=== PATIENT | male | born 1950 | race Caucasian/White ===

== ENCOUNTER 2021-06-21 17:28 | Inpatient (IN) ==
[2021-06-21 19:23] LABS: Basophils # (auto) 0.02 K/uL (0-0.2); Basophils % (auto) 0.2 %; Eosinophils # (auto) 0.12 K/uL (0-0.5); Eosinophils % (auto) 1.1 %; Hematocrit (blood only) 31.4 % (42-52); Immature Granulocytes # (auto) 0.01 K/uL (0.00-0.02); Immature Granulocytes % (auto) 0.1 %; Lymphocytes # (auto) 2.13 K/uL (1.2-3.4); Mean Corpuscular Hemoglobin 27.9 pg (25-34); Mean Corpuscular Hgb Conc 31.8 g/dL (32-36); Mean Corpuscular Volume 87.7 fL (80-100); Mean Platelet Volume 8.8 fL (7.4-10.4); Monocytes # (auto) 0.46 K/uL (0.11-0.59); Monocytes % (auto) 4.3 %; Neutrophils # (auto) 7.92 K/uL (1.4-6.5); Neutrophils % (auto) 74.3 %; Platelet Count 429 K/uL (130-400); RDW Coefficient of Variation 13.7 % (11.5-14.5); Red Blood Count 3.58 M/uL (4.7-6.1); White Blood Count 10.66 K/uL (4.8-10.8)
[2021-06-21 19:28] LABS: Appearance Urine Cloudy (Clear); Bacteria Urine Automated Negative (Negative); Bilirubin Urine Negative (Negative); Blood Urine Negative (Negative); Color Urine Dark Yellow; Epithelial Cell Urine Auto >30 /lpf (0-5); Glucose Urine UA Negative (Negative); Ketones Urine Trace (Negative); Leukocyte Esterase Urine 1+ (Negative); Nitrite Urine Negative (Negative); Protein Urine 2+ (Negative); Specific Gravity Urine 1.025 (1.000-1.030); Urobilinogen Urine Negative (Negative)
[2021-06-21 19:38] LABS: INR 1.1 (0.9-1.1); Partial Thromboplastin Ratio 0.9; Partial Thromboplastin Time 23.8 Seconds (21.0-31.0); Prothrombin Time 11.4 Seconds (9.0-12.0)
[2021-06-21 19:41] LABS: Alanine Aminotransferase 16 U/L (12-78); Albumin Level 3.1 gm/dl (3.4-5.0); Aspartate Aminotransferase 10 U/L (15-37); BUN Creatinine Ratio 13.4 (10-20); Blood Urea Nitrogen 13 mg/dl (7-18); Calcium 9.2 mg/dl (8.5-10.1); Carbon Dioxide 30 mmol/L (21-32); Chloride 102 mmol/L (98-107); Est GFR (Non-African American) 80.2 ml/min; Glucose 129 mg/dl (70-99); Magnesium 2.1 mg/dl (1.8-2.4); Potassium 3.2 mmol/L (3.5-5.1); Sodium 139 mmol/L (136-145)
[2021-06-21 19:46] LABS: Albumin Globulin Ratio 0.6 (0.9-2); Alkaline Phosphatase 50 U/L (45-117); Bilirubin,Total 0.4 mg/dl (0.2-1); Total Protein 8.1 gm/dl (6.4-8.2); Troponin I < 0.015 ng/ml (0-0.045)
[2021-06-21 20:09] LABS: Calcium Oxalate Crystals Urine Present (None Prsent); Cast Urine Automated 0 /lpf (0-5); RBC Urine Automated 0-4 /hpf (0-4); Renal Epithelial Cells Urine 0-5 /lpf (0-5)
[2021-06-21 20:21] LABS: C Reactive Protein 9.61 mg/dl (0-0.29)
--- NOTE | 2021-06-21 20:42 | XRay Report ---
XR foot RT 2V HISTORY: 70 years-old Male Concern for osteo 1st toe, spreads to mid foot chronic right foot pain. C linical concern for prostatitis COMPARISON: [Radiographs of same day TECHNIQUE: 2 views of the right foot FINDINGS: Moderate sized enthesophytes of the calcaneus. Mild multifocal osteoarthritis. Bipartite lateral agrawal ux sesamoid. No acute fracture, dislocation, opaque foreign body or osseous erosion. Mild diffuse sof t tissue prominence. IMPRESSION: Soft tissue swelling without acute fracture or osseous erosion. ACT 112: Negative or not required by law. The above report was generated using voice recognition software. It may contain grammatical, syntax o r spelling errors. Electronically signed by: Jay Marks M.D. 06/21/2021 8:40 PM
--- NOTE | 2021-06-21 20:44 | XRay Report ---
XR foot LT 2V, XR ankle LT 2V HISTORY: 70 years-old Male concern for osteo 2nd-3rd toes spreads to mid foot chronic pain of the le ft foot and ankle. Clinical concern prostate myelitis COMPARISON: None TECHNIQUE: 2 views of the left foot with 2 views of the left ankle FINDINGS: FOOT: Mild multifocal osteoarthritis. No acute fracture, dislocation or osseous erosion.. Moderate sized en thesophytes of the calcaneus. No opaque foreign body. Moderate diffuse soft tissue prominence. Small ankle joint effusion. ANKLE: Moderate circumferential soft tissue swelling of the ankle. Mild tibiotalar osteoarthritis with ankle joint effusion. Moderate sized enthesophytes of the calcaneus. IMPRESSION: Soft tissue swelling without acute fracture or osseous erosion. ACT 112: Negative or not required by law. The above report was generated using voice recognition software. It may contain grammatical, syntax o r spelling errors. Electronically signed by: Jay aMrks M.D. 06/21/2021 8:43 PM
[2021-06-21] MEDS ORDERED: VANCOMYCIN HCL 2,250 MG in SODIUM CHLORIDE 0.9% 500 ML IV ONE (20:58)
[2021-06-21] MEDS ORDERED: PIPERACILL/TAZOBAC CONSULT ACTIVE PRN ×2 (20:58→23:09)
[2021-06-21] MEDS ORDERED: PIPERACILLIN/TAZOBACTAM 4.5 GM/120 ML BAG IV ONE (20:58)
[2021-06-21] MEDS ORDERED: VANCOMYCIN CONSULT ACTIVE PRN ×2 (20:58→23:09)
--- NOTE | 2021-06-21 21:27 | History & Physical Report ---
Date of Service June 21, 2021 Assessment & Plan (1) Cellulitis of foot, left: Plan: Cellulitis of right and left foot- Examination is suggestive of gout, however, uric acid levels are in the low to mid normal range. We will treat primarily a cellulitis at this point with vancomycin IV and Zosyn IV continuing from the ED Follow clinical examination (2) Cellulitis of foot, right: Plan: See above (3) HTN (hypertension): Plan: Continue lisinopril (4) BPH (benign prostatic hyperplasia): Plan: Continue Terazosin History of Present Illness Chief Complaint: The patient presents to the emergency department with worsening right toe and left first, second and third toes extending to the dorsal surface pain, swelling and redness. He reports that his feet hurt too much to walk Primary Care Provider: NO PCP The patient is a 70-year-old male with a past medical history including hillary B12 deficiency, hyperlipidemia, BPH with LUTS and obesity who presents to the emergency department as noted above. Abnormal laboratories: WBC 10.66, hemoglobin 10.0, hematocrit 31.4, platelets 429, ESR 98, albumin 3.1, potassium 3.2 and glucose 129. Bilateral foot and ankle x-rays show soft tissue swelling without acute fracture or osseous erosion Allergies Allergy/AdvReac Type Severity Reaction Status Date / Time Penicillins AdvReac Severe pain Verified 06/21/21 21:36 Home Medications Medication Instructions Recorded Confirmed Type ascorbic acid (vitamin C) 500 mg 500 mg PO DAILY 06/21/21 06/21/21 History tablet (Vitamin C) aspirin 81 mg tablet,delayed 81 mg PO DAILY 06/21/21 06/21/21 History release (Aspirin Low Dose) cholecalciferol (vitamin D3) 25 25 mcg PO DAILY 06/21/21 06/21/21 History mcg (1,000 unit) tablet (Vitamin D3) cyanocobalamin (vitamin B-12) 1,000 mcg PO WK 06/21/21 06/21/21 History 1,000 mcg tablet (Vitamin B-12) krill 1,000 mg-omega-3 170 mg-dha 2 cap PO DAILY PRN 06/21/21 06/21/21 History 50 mg-epa 80 we-jpyjbc-luggl capsule (krill oil) lisinopril 10 mg tablet 15 mg PO HS 06/21/21 06/21/21 History multivitamin 1 tab PO WK 06/21/21 06/21/21 History terazosin 2 cap PO HS 06/21/21 06/21/21 History vitamins A,C,Z-xsoa-qihrui 14,320 1 cap PO DAILY 06/21/21 06/21/21 History unit-226 mg-200 unit capsule (PreserVision AREDS) Past Med/Surg History Medical History (Updated 06/22/21 @ 02:34 by Brandon Johns MD) BPH (benign prostatic hyperplasia) HTN (hypertension) Kidney stones Surgical History (Updated 06/21/21 @ 21:19 by Britt Peck PA-C) Hx of tonsillectomy Social History Smoking Status: Former smoker Smoking End Date: 1972; Hx Alcohol Use: No Hx Substance Use: Yes Non-Prescribed Medications: Marijuana Last Used Substance Other:: occasionally Preferred Language: Malaysian Communication Ability: Effective [employer] Director Required: No Beliefs That Will Affect Care: None Current Living Situation: Alone Other Information That Helps Us Care for You: No Feels Safe at Home: Yes Safety Concerns: Feels Safe At This Time Assistive Devices: Cane Review of Systems Review of Systems: The patient denies chest pain, palpitations, shortness of breath, dyspnea on exertion, cough, sore throat, fevers, chills, sweats, weight change, fatigue, nausea, vomiting, diarrhea , constipation, abdominal pain, pelvic pain, blood in urine or stool, dysuria, urinary frequency or urgency, lightheadedness, dizziness, headache, memory loss, loss of consciousness, abnormal bruising or bleeding, focal or generalized weakness, numbness or tingling in arms, generalized arthralgias or myalgias, back or neck pain, or night sweats. The review of systems is otherwise negative other than for that already noted above, and at least 10 systems have been reviewed. Physical Exam Physical Exam: The patient is awake, alert and oriented 3, well developed and well nourished, normocephalic and atraumatic, lying in bed and in no acute distress. HEENT--PERRL, EOMI, mucous membranes and oropharynx normal. Neck--supple. No JVD. No bruits. Thyroid normal, trachea midline, no adenopathy. Heart--normal S1 and S2. No murmurs, rubs or gallops. Lungs--clear bilaterally, no respiratory distress, no accessory muscle use. Abdomen--normal bowel sounds and soft. Nontender. Nondistended, no hernias or masses, no organomegaly. Extremities/dermatologic-trace to 1+ bilateral pretibial pitting edema. Erythema, pain and swelling right great toe. Erythema, pain and swelling left first, second and third toes, and extending to the dorsal surface of the foot. Neurologic--cranial nerves II through XII grossly intact. Rheumatologic--normal range of motion. Psychiatric--normal affect. Results & Data Results & Data ([facility]) Vital Signs (Past 12 Hours) Vital Signs Temp Pulse Pulse Resp BP BP Pulse Ox 06/21/21 21:00 96 H 16 167/85 H 98 06/21/21 19:45 99 H 99 H 18 179/84 H 97 06/21/21 17:50 98.6 F 108 H 20 176/86 H 96 Laboratory Results Laboratory Results WBC 10.66 K/uL (4.8-10.8) 06/21/21 18:44 RBC 3.58 M/uL (4.7-6.1) L 06/21/21 18:44 Hgb 10.0 g/dL (14.0-18.0) L 06/21/21 18:44 Hct 31.4 % (42-52) L 06/21/21 18:44 MCV 87.7 fL (80-100) 06/21/21 18:44 MCH 27.9 pg (25-34) 06/21/21 18:44 MCHC 31.8 g/dL (32-36) L 06/21/21 18:44 RDW Std Deviation 44.0 fL (36.4-46.3) 06/21/21 18:44 RDW Coeff of Cari 13.7 % (11.5-14.5) 06/21/21 18:44 Plt Count 429 K/uL (130-400) H 06/21/21 18:44 MPV 8.8 fL (7.4-10.4) 06/21/21 18:44 Immature Gran % (Auto) 0.1 % 06/21/21 18:44 Neut % (Auto) 74.3 % 06/21/21 18:44 Lymph % (Auto) 20.0 % 06/21/21 18:44 [place] % (Auto) 4.3 % 06/21/21 18:44 Eos % (Auto) 1.1 % 06/21/21 18:44 Baso % (Auto) 0.2 % 06/21/21 18:44 Neut # (Auto) 7.92 K/uL (1.4-6.5) H 06/21/21 18:44 Lymph # (Auto) 2.13 K/uL (1.2-3.4) 06/21/21 18:44 [place] # (Auto) 0.46 K/uL (0.11-0.59) 06/21/21 18:44 Eos # (Auto) 0.12 K/uL (0-0.5) 06/21/21 18:44 Baso # (Auto) 0.02 K/uL (0-0.2) 06/21/21 18:44 Immature Gran # (Auto) 0.01 K/uL (0.00-0.02) 06/21/21 18:44 ESR 98 mm/hr (0-20) H 06/21/21 19:52 PT 11.4 Seconds (9.0-12.0) 06/21/21 18:44 INR 1.1 (0.9-1.1) 06/21/21 18:44 APTT 23.8 Seconds (21.0-31.0) 06/21/21 18:44 PTT Ratio 0.9 06/21/21 18:44 Sodium 139 mmol/L (136-145) 06/21/21 18:44 Potassium 3.2 mmol/L (3.5-5.1) L 06/21/21 18:44 Chloride 102 mmol/L (98-107) 06/21/21 18:44 Carbon Dioxide 30 mmol/L (21-32) 06/21/21 18:44 Anion Gap 7.0 (3-11) 06/21/21 18:44 BUN 13 mg/dl (7-18) 06/21/21 18:44 Creatinine 0.95 mg/dl (0.6-1.4) 06/21/21 18:44 Est Cr Clr Drug Dosing Not Reportable 06/21/21 18:44 Est GFR ( Amer) 93.0 ml/min 06/21/21 18:44 Est GFR (Non-Af Amer) 80.2 ml/min 06/21/21 18:44 BUN/Creatinine Ratio 13.4 (10-20) 06/21/21 18:44 Glucose 129 mg/dl (70-99) H 06/21/21 18:44 Lactate 1.5 mmol/L (0.4-2.0) 06/21/21 19:52 Uric Acid 4.4 mg/dl (2.6-7.2) 06/21/21 19:52 Calcium 9.2 mg/dl (8.5-10.1) 06/21/21 18:44 Magnesium 2.1 mg/dl (1.8-2.4) 06/21/21 18:44 Total Bilirubin 0.4 mg/dl (0.2-1) 06/21/21 18:44 AST 10 U/L (15-37) L 06/21/21 18:44 ALT 16 U/L (12-78) 06/21/21 18:44 Alkaline Phosphatase 50 U/L (45-117) 06/21/21 18:44 Troponin I < 0.015 ng/ml (0-0.045) 06/21/21 18:44 C-Reactive Protein 9.61 mg/dl (0-0.29) H 06/21/21 19:52 Total Protein 8.1 gm/dl (6.4-8.2) 06/21/21 18:44 Albumin 3.1 gm/dl (3.4-5.0) L 06/21/21 18:44 Globulin 5.0 gm/dl (2.5-4.0) H 06/21/21 18:44 Albumin/Globulin Ratio 0.6 (0.9-2) L 06/21/21 18:44 Urine Color Dark Yellow 06/21/21 18: Urine Appearance Cloudy (Clear) A 06/21/21 18: Urine pH 6.0 (4.5-7.5) 06/21/21 18:22 Ur Specific [place] 1.025 (1.000-1.030) 06/21/21 18: Urine Protein 2+ (Negative) H 06/21/21 18:22 Urine Glucose (UA) Negative (Negative) 06/21/21 18:22 Urine Ketones Trace (Negative) H 06/21/21 18:22 Urine Blood Negative (Negative) 06/21/21 18:22 Urine Nitrite Negative (Negative) 06/21/21 18:22 Urine Bilirubin Negative (Negative) 06/21/21 18:22 Urine Urobilinogen Negative (Negative) 06/21/21 18:22 Ur Leukocyte Esterase 1+ (Negative) H 06/21/21 18:22 Urine WBC (Auto) 10-30 /hpf (0-5) H 06/21/21 18:22 Urine RBC (Auto) 0-4 /hpf (0-4) 06/21/21 18:22 U Hyaline Cast (Auto) 0 /lpf (0-5) 06/21/21 18:22 U Epithel Cells (Auto) >30 /lpf (0-5) H 06/21/21 18:22 Urine Bacteria (Auto) Negative (Negative) 06/21/21 18:22 Ur Renal Epithelial Cell 0-5 /lpf (0-5) 06/21/21 18:22 Urine Crystals Calcium Oxalate (None Prsent) A 06/21/21 18:22 Calcium Oxalate Crystal Present (None Prsent) A 06/21/21 18:22 COVID-19 Eval Order Covid19 at [facility] 06/21/21 20:47 SARS-CoV-2 (PCR) NEGATIVE (Negative) 06/21/21 20:47 Impressions Ankle X-Ray 06/21/21 19:49 XR foot LT 2V, XR ankle LT 2V HISTORY: 70 years-old Male concern for osteo 2nd-3rd toes spreads to mid foot chronic pain of the left foot and ankle. Clinical concern prostate myelitis COMPARISON: None TECHNIQUE: 2 views of the left foot with 2 views of the left ankle FINDINGS: FOOT: Mild multifocal osteoarthritis. No acute fracture, dislocation or osseous erosion.. Moderate sized enthesophytes of the calcaneus. No opaque foreign body. Moderate diffuse soft tissue prominence. Small ankle joint effusion. ANKLE: Moderate circumferential soft tissue swelling of the ankle. Mild tibiotalar osteoarthritis with ankle joint effusion. Moderate sized enthesophytes of the calcaneus. IMPRESSION: Soft tissue swelling without acute fracture or osseous erosion. ACT 112: Negative or not required by law. The above report was generated using voice recognition software. It may contain grammatical, syntax or spelling errors. Electronically signed by: Jay Marks M.D. 06/21/2021 8:43 PM Foot X-Ray 06/21/21 19:49 XR foot LT 2V, XR ankle LT 2V HISTORY: 70 years-old Male concern for osteo 2nd-3rd toes spreads to mid foot chronic pain of the left foot and ankle. Clinical concern prostate myelitis COMPARISON: None TECHNIQUE: 2 views of the left foot with 2 views of the left ankle FINDINGS: FOOT: Mild multifocal osteoarthritis. No acute fracture, dislocation or osseous erosion.. Moderate sized enthesophytes of the calcaneus. No opaque foreign body. Moderate diffuse soft tissue prominence. Small ankle joint effusion. ANKLE: Moderate circumferential soft tissue swelling of the ankle. Mild tibiotalar osteoarthritis with ankle joint effusion. Moderate sized enthesophytes of the calcaneus. IMPRESSION: Soft tissue swelling without acute fracture or osseous erosion. ACT 112: Negative or not required by law. The above report was generated using voice recognition software. It may contain grammatical, syntax or spelling errors. Electronically signed by: Jay Marks M.D. 06/21/2021 8:43 PM Code Status & VTE Plan Code Status Full code VTE Prophylaxis Plan VTE Prophylaxis will be ordered: Yes PG Care Time/CCT Total # of Minutes Spent Total Time Spent with Patient: Total time spent is greater than 50% in coordination of care (as documented) at patient's floor/unit and/or counseling patient: Coding Level of Care Code INT OBSERVATION CARE 69M LVL 3 Diagnoses HTN (hypertension) I10 BPH (benign prostatic hyperplasia) N40.0 Cellulitis of foot, left L03.116 Cellulitis of foot, right L03.115
[2021-06-21 21:33] LABS: Uric Acid 4.4 mg/dl (2.6-7.2)
--- NOTE | 2021-06-21 21:38 | Emergency Department Note ---
Impression & Plan Cellulitis of foot, left, Cellulitis of foot, right ED Provider Note CHIEF COMPLAINT: Pain, redness and swelling to bilateral toes/feet HISTORY OF PRESENT ILLNESS: Joselito Candelaria is a 70 year old male with history of HTN, BPH and kidney stones who presents to the Emergency Department for sole luation of pain, redness and swelling to his right 1st toe extending into his forefoot and left 2nd-3rd toes extending into his forefoot and ankle which has become worse over the past 6 weeks. Prior to the time of onset 6 weeks ago, the patient states that he bumped his left medial ankle off of the corner of a chair. He denies suffering any open wounds but states that his ankle became swollen and shortly after that, he noticed the redness/swelling in his 2nd-3rd toes. About a week after he developed these symptoms in his left extremity, the patient denies suffering any additional injuries, however, he then developed redness and swelling in his 1st toe which has since extending down into his foot. The patient has been following at the [facility] for his symptoms and states that he did complete a full course of antibiotics which he finished about 4 days ago, although he is unsure of the name of this medication. The patient states that his doctor also prescribed him an antiinflammatory but he hadn't started taking it yet because it just arrived to his house yesterday, so he has just been taking Advil to try to control his pain. Despite taking the antibiotic and Advil, the pain, redness and swelling has become worse and it is now difficult for him to ambulate as it is too painful to place weight on his feet, thus the [facility] doctor referred him to the ED for further evaluation today. In addition to these symptoms, the patient does state that he has cold sweats over the last several days but he denies having a fever, sore throat, cough, chest pain, shortness of breath, abdominal pain, nausea, vomiting or diarrhea. He does state that he has been having difficulty passing urine and is only able to void small amounts at a time. No other acute complaints. REVIEW OF SYSTEMS: 10 systems were reviewed and were negative unless otherwise stated in HPI as above PHYSICAL EXAM: VITALS: Vitals are noted on the nurse's note and reviewed by myself. Hypertensive, otherwise stable. General: Resting in bed, no acute distress HEENT: Normocephalic, PERRL, EOMI, mucous membranes moist, oropharynx clear Resp: Good inspiratory effort on room air, lung sounds clear bilaterally CV: Regular rate and rhythm, peripheral pulses palpated Abd: Mildly distended but soft, non-tender Integumentary/MSK: RLE: Erythema and edema to the 1st toe extending past the MCP and into the forefoot with tenderness to palpation. No open wounds. Able to move 1st toe but with pain. D/p pulse and sensation intact. Superficial abrasion over the right knee, otherwise no other wounds to the RLE. FROM of the move ankle, k nee and hip without pain, nontender to palpation over these areas. LLE: Erythema and edema over the 2nd-3rd toes extending into the forefoot. Entire foot and lateral malleolus is edematous and tender to palpation. Able to move toes and ankle but with pain. No open wounds. D/p pulse and sensation intact. Moving knee and hip without pain, nontender to palpation over these areas. Moving BUE without apparent pain or difficulty. No other appreciable wounds or rashes. Neuro: Awake, alert, interacting and answering questions appropriately Differential diagnosis includes cellulitis, abscess, osteomyelitis, MRSA infection, dermatitis, drug eruption, DVT as well as others were entertained. EMERGENCY DEPARTMENT COURSE: Physical exam and history were performed. Nursing notes, EMR, and medication list were personally reviewed. Continuous director of instrumental music: Order was placed for continuous director of instrumental music. Patient was placed on the director of instrumental music. Patient was noted to be tachycardic at an initial rate of 108 bpm, later improved to 96 bpm. EKG was obtained and reviewed by myself as below. This showed sinus tachycardia 103 BPM with possible left atrial enlargement and RBBB, no concern for acute ischemic change Patient appears to have worsening pain, redness and swelling to his bilateral toes extending into his forefeet and left ankle as described above. [facility] and [facility] a full course of antibiotics (unknown name) which he states he finished about 4 days ago, however as his symptoms have continued to worsen he was referred to the ED for further evaluation. Exam findings are concerning for cellulitic infection, however I would also consider possible osteomyelitis with proximity to his right 1st toe and left 2nd-3rd toes. IV access was established, labs were drawn and reviewed by myself as below. Of note, he did not have a significant leukocytosis with WBC 10.66, mild anemia with hgb 10.0, thrombocytosis with platelets 429. Lactate WNL at 1.5 but ESR elevated 98 and CRP 9.61 consistent with inflammatory process from infection. CMP with hypokalemia 3.2, mildly hyperglycemic 129, LFTs non-diagnostic. UA also obtained and likely contaminated with >30 epithelial cells, however calcium oxalate A present consistent with hx kidney stones. X-rays of the bilateral feet and left ankle were obtained and reviewed by radiologist and myself as below. Images did show soft tissue swelling but were n egative for acute fracture or osseous erosion concerning for osteomyelitis. Uoon reevaluation, the patient was doing well. I discussed the results of the above findings with him as well as with my attending, Dr. Parkinson. As the patient failed to improve after completing a full course of PO antibiotics at home and given the extent of the infection, I feel that he will benefit from continued therapy on IV antibiotics. He was started on IV vancomycin and Zosyn. The [facility] was contacted and agreed to evaluate the patient for further management. The patient verbalizes understanding and agreement with this treatment plan. The chart was completed utilizing [employer] Speech Voice Recognition Software. Grammatical errors, random word insertions, pronoun errors, and incomplete sentences are an occasional consequence of this system due to software limitations, ambient noise, and hardware issues. Any formal questions or concerns about the content, text, or information contained within the body of this dictation should be directly addressed to the provider for clarification. Attending Attestation: I Dwight Parkinson MD independently saw and evaluated this patient and agree with history and physical is otherwise documented by the physician evaluation assistant. See their note for full details. Patient with some swelling of the right great toe and swelling of the right foot of the right ankle with some erythema bilaterally. No crepitus. No obvious seeping wounds. Question to some component of gout with this but concern for infection but his primary concern. No improvement with outpatient Keflex and will cover more broadly with van comycin and Zosyn at this time. No evidence of osteomyelitis apparent on x-rays. Patient does not appear septic. Patient will be monitored here in the hospital with further IV antibiotic therapy. Past Med/Surg History Medical History BPH (benign prostatic hyperplasia) HTN (hypertension) Kidney stones Surgical History (Updated 06/21/21 @ 21:19 by Britt Peck PA-C) Hx of tonsillectomy Social History Smoking Status: Former smoker Smoking End Date: 1972; Hx Alcohol Use: No Hx Substance Use: Yes Non-Prescribed Medications: Marijuana Last Used Substance Other:: occasionally Preferred Language: Kazakh Communication Ability: Effective Yard Inspector Required: No Beliefs That Will Affect Care: None Current Living Situation: Alone Other Information That Helps Us Care for You: No Feels Safe at Home: Yes Safety Concerns: Feels Safe At This Time Assistive Devices: Cane, Denture - Upper, Denture - Lower and Glasses Allergies Allergies Allergy/AdvReac Type Severity Reaction Status Date / Time Penicillins AdvReac Severe pain Verified 06/21/21 21:36 Home Meds Home Medications Medication Instructions Recorded Confirmed ascorbic acid (vitamin C) 500 mg 500 mg PO DAILY 06/21/21 06/21/21 tablet (Vitamin C) aspirin 81 mg tablet,delayed 81 mg PO DAILY 06/21/21 06/21/21 release (Aspirin Low Dose) cholecalciferol (vitamin D3) 25 25 mcg PO DAILY 06/21/21 06/21/21 mcg (1,000 unit) tablet (Vitamin D3) cyanocobalamin (vitamin B-12) 1,000 mcg PO WK 06/21/21 06/21/21 1,000 mcg tablet (Vitamin B-12) krill 1,000 mg-omega-3 170 mg-dha 2 cap PO DAILY PRN 06/21/21 06/21/21 50 mg-epa 80 [id number]-mhbwas-[id number] capsule (krill oil) lisinopril 10 mg tablet 15 mg PO HS 06/21/21 06/21/21 multivitamin 1 tab PO WK 06/21/21 06/21/21 terazosin 2 cap PO HS 06/21/21 06/21/21 vitamins A,C,Y-zaqj-vymkad 14,320 1 cap PO DAILY 06/21/21 06/21/21 unit-226 mg-200 unit capsule (PreserVision AREDS) Results & Data (ED) Vital Signs Vital Signs - 24 hr 06/21/21 17:50 06/21/21 19:45 06/21/21 21:00 Temperature 37.0 C Temperature Source Temporal Artery Scan Pulse Rate 108 H 99 H Pulse Rate [Apical] 99 H 96 H Respiratory Rate 20 18 16 Respiratory Effort / Characteristics Non-Labored Spontaneous Non-Labored Spontaneous Respiratory Depth Normal Normal Respiratory Pattern Regular Blood Pressure 176/86 H Blood Pressure [Right Arm] 179/84 H 167/85 H Blood Pressure Mean 116 Blood Pressure Mean [Right Arm] 115 112 Pulse Oximetry 96 97 98 Oxygen Delivery Method Room Air Room Air Room Air Sepsis Recent Fever Within 48 Hours No Sepsis New/Unexplained Change in Mental Status No Sepsis Action Taken by Nursing No Action Required 06/21/21 22:00 06/21/21 22:21 Temperature 37.0 C Temperature Source Oral Pulse Rate Pulse Rate [Apical] 91 H 93 H Respiratory Rate 18 20 Respiratory Effort / Characteristics Respiratory Depth Respiratory Pattern Blood Pressure Blood Pressure [Right Arm] 189/95 H 189/95 H Blood Pressure Mean Blood Pressure Mean [Right Arm] 126 126 Pulse Oximetry 97 93 Oxygen Delivery Method Room Air Room Air Sepsis Recent Fever Within 48 Hours Sepsis New/Unexplained Change in Mental Status Sepsis Action Taken by Nursing Laboratory Data Result diagrams: 06/21/21 18:44 06/21/21 18:44 Lab Results 06/21/21 06/21/21 06/21/21 Range/Units 18:22 18:44 18:44 WBC 10.66 (4.8-10.8) K/uL RBC 3.58 L (4.7-6.1) M/uL Hgb 10.0 L (14.0-18.0) g/dL Hct 31.4 L (42-52) % MCV 87.7 (80-100) fL MCH 27.9 (25-34) pg MCHC 31.8 L (32-36) g/dL RDW Std Deviation 44.0 (36.4-46.3) fL RDW Coeff of Cari 13.7 (11.5-14.5) % Plt Count 429 H (130-400) K/uL MPV 8.8 (7.4-10.4) fL Immature Gran % (Auto) 0.1 % Neut % (Auto) 74.3 % Lymph % (Auto) 20.0 % [place] % (Auto) 4.3 % Eos % (Auto) 1.1 % Baso % (Auto) 0.2 % Neut # (Auto) 7.92 H (1.4-6.5) K/uL Lymph # (Auto) 2.13 (1.2-3.4) K/uL [place] # (Auto) 0.46 (0.11-0.59) K/uL Eos # (Auto) 0.12 (0-0.5) K/uL Baso # (Auto) 0.02 (0-0.2) K/uL Immature Gran # (Auto) 0.01 (0.00-0.02) K/uL ESR (0-20) mm/hr PT 11.4 (9.0-12.0) Seconds INR 1.1 (0.9-1.1) APTT 23.8 (21.0-31.0) Seconds PTT Ratio 0.9 Sodium (136-145) mmol/L Potassium (3.5-5.1) mmol/L Chloride (98-107) mmol/L Carbon Dioxide (21-32) mmol/L Anion Gap (3-11) BUN (7-18) mg/dl Creatinine (0.6-1.4) mg/dl Est Cr Clr Drug Dosing Est GFR ( Amer) ml/min Est GFR (Non-Af Amer) ml/min BUN/Creatinine Ratio (10-20) Glucose (70-99) mg/dl Lactate (0.4-2.0) mmol/L Uric Acid (2.6-7.2) mg/dl Calcium (8.5-10.1) mg/dl Magnesium (1.8-2.4) mg/dl Total Bilirubin (0.2-1) mg/dl AST (15-37) U/L ALT (12-78) U/L Alkaline Phosphatase (45-117) U/L Troponin I (0-0.045) ng/ml C-Reactive Protein (0-0.29) mg/dl Total Protein (6.4-8.2) gm/dl Albumin (3.4-5.0) gm/dl Globulin (2.5-4.0) gm/dl Albumin/Globulin Ratio (0.9-2) Urine Color Dark Yellow Urine Appearance Cloudy A (Clear) Urine pH 6.0 (4.5-7.5) Ur Specific [place] 1.025 (1.000-1.030) Urine Protein 2+ H (Negative) Urine Glucose (UA) Negative (Negative) Urine Ketones Trace H (Negative) Urine Blood Negative (Negative) Urine Nitrite Negative (Negative) Urine Bilirubin Negative (Negative) Urine Urobilinogen Negative (Negative) Ur Leukocyte Esterase 1+ H (Negative) Urine WBC (Auto) 10-30 H (0-5) /hpf Urine RBC (Auto) 0-4 (0-4) /hpf U Hyaline Cast (Auto) 0 (0-5) /lpf U Epithel Cells (Auto) >30 H (0-5) /lpf Urine Bacteria (Auto) Negative (Negative) Ur Renal Epithelial Cell 0-5 (0-5) /lpf Urine Crystals Calcium Oxalate A (None Prsent) Calcium Oxalate Crystal Present A (None Prsent) COVID-19 Eval Order SARS-CoV-2 (PCR) (Negative) 06/21/21 06/21/21 06/21/21 Range/Units 18:44 19:52 19:52 WBC (4.8-10.8) K/uL RBC (4.7-6.1) M/uL Hgb (14.0-18.0) g/dL Hct (42-52) % MCV (80-100) fL MCH (25-34) pg MCHC (32-36) g/dL RDW Std Deviation (36.4-46.3) fL RDW Coeff of Cari (11.5-14.5) % Plt Count (130-400) K/uL MPV (7.4-10.4) fL Immature Gran % (Auto) % Neut % (Auto) % Lymph % (Auto) % [place] % (Auto) % Eos % (Auto) % Baso % (Auto) % Neut # (Auto) (1.4-6.5) K/uL Lymph # (Auto) (1.2-3.4) K/uL [place] # (Auto) (0.11-0.59) K/uL Eos # (Auto) (0-0.5) K/uL Baso # (Auto) (0-0.2) K/uL Immature Gran # (Auto) (0.00-0.02) K/uL ESR 98 H (0-20) mm/hr PT (9.0-12.0) Seconds INR (0.9-1.1) APTT (21.0-31.0) Seconds PTT Ratio Sodium 139 (136-145) mmol/L Potassium 3.2 L (3.5-5.1) mmol/L Chloride 102 (98-107) mmol/L Carbon Dioxide 30 (21-32) mmol/L Anion Gap 7.0 (3-11) BUN 13 (7-18) mg/dl Creatinine 0.95 (0.6-1.4) mg/dl Est Cr Clr Drug Dosing Not Reportable Est GFR ( Amer) 93.0 ml/min Est GFR (Non-Af Amer) 80.2 ml/min BUN/Creatinine Ratio 13.4 (10-20) Glucose 129 H (70-99) mg/dl Lactate 1.5 (0.4-2.0) mmol/L Uric Acid (2.6-7.2) mg/dl Calcium 9.2 (8.5-10.1) mg/dl Magnesium 2.1 (1.8-2.4) mg/dl Total Bilirubin 0.4 (0.2-1) mg/dl AST 10 L (15-37) U/L ALT 16 (12-78) U/L Alkaline Phosphatase 50 (45-117) U/L Troponin I < 0.015 (0-0.045) ng/ml C-Reactive Protein (0-0.29) mg/dl Total Protein 8.1 (6.4-8.2) gm/dl Albumin 3.1 L (3.4-5.0) gm/dl Globulin 5.0 H (2.5-4.0) gm/dl Albumin/Globulin Ratio 0.6 L (0.9-2) Urine Color Urine Appearance (Clear) Urine pH (4.5-7.5) Ur Specific [place] (1.000-1.030) Urine Protein (Negative) Urine Glucose (UA) (Negative) Urine Ketones (Negative) Urine Blood (Negative) Urine Nitrite (Negative) Urine Bilirubin (Negative) Urine Urobilinogen (Negative) Ur Leukocyte Esterase (Negative) Urine WBC (Auto) (0-5) /hpf Urine RBC (Auto) (0-4) /hpf U Hyaline Cast (Auto) (0-5) /lpf U Epithel Cells (Auto) (0-5) /lpf Urine Bacteria (Auto) (Negative) Ur Renal Epithelial Cell (0-5) /lpf Urine Crystals (None Prsent) Calcium Oxalate Crystal (None Prsent) COVID-19 Eval Order SARS-CoV-2 (PCR) (Negative) 06/21/21 06/21/21 06/21/21 Range/Units 19:52 20:47 20:47 WBC (4.8-10.8) K/uL RBC (4.7-6.1) M/uL Hgb (14.0-18.0) g/dL Hct (42-52) % MCV (80-100) fL MCH (25-34) pg MCHC (32-36) g/dL RDW Std Deviation (36.4-46.3) fL RDW Coeff of Cari (11.5-14.5) % Plt Count (130-400) K/uL MPV (7.4-10.4) fL Immature Gran % (Auto) % Neut % (Auto) % Lymph % (Auto) % [place] % (Auto) % Eos % (Auto) % Baso % (Auto) % Neut # (Auto) (1.4-6.5) K/uL Lymph # (Auto) (1.2-3.4) K/uL [place] # (Auto) (0.11-0.59) K/uL Eos # (Auto) (0-0.5) K/uL Baso # (Auto) (0-0.2) K/uL Immature Gran # (Auto) (0.00-0.02) K/uL ESR (0-20) mm/hr PT (9.0-12.0) Seconds INR (0.9-1.1) APTT (21.0-31.0) Seconds PTT Ratio Sodium (136-145) mmol/L Potassium (3.5-5.1) mmol/L Chloride (98-107) mmol/L Carbon Dioxide (21-32) mmol/L Anion Gap (3-11) BUN (7-18) mg/dl Creatinine (0.6-1.4) mg/dl Est Cr Clr Drug Dosing Est GFR ( Amer) ml/min Est GFR (Non-Af Amer) ml/min BUN/Creatinine Ratio (10-20) Glucose (70-99) mg/dl Lactate (0.4-2.0) mmol/L Uric Acid 4.4 (2.6-7.2) mg/dl Calcium (8.5-10.1) mg/dl Magnesium (1.8-2.4) mg/dl Total Bilirubin (0.2-1) mg/dl AST (15-37) U/L ALT (12-78) U/L Alkaline Phosphatase (45-117) U/L Troponin I (0-0.045) ng/ml C-Reactive Protein 9.61 H (0-0.29) mg/dl Total Protein (6.4-8.2) gm/dl Albumin (3.4-5.0) gm/dl Globulin (2.5-4.0) gm/dl Albumin/Globulin Ratio (0.9-2) Urine Color Urine Appearance (Clear) Urine pH (4.5-7.5) Ur Specific [place] (1.000-1.030) Urine Protein (Negative) Urine Glucose (UA) (Negative) Urine Ketones (Negative) Urine Blood (Negative) Urine Nitrite (Negative) Urine Bilirubin (Negative) Urine Urobilinogen (Negative) Ur Leukocyte Esterase (Negative) Urine WBC (Auto) (0-5) /hpf Urine RBC (Auto) (0-4) /hpf U Hyaline Cast (Auto) (0-5) /lpf U Epithel Cells (Auto) (0-5) /lpf Urine Bacteria (Auto) (Negative) Ur Renal Epithelial Cell (0-5) /lpf Urine Crystals (None Prsent) Calcium Oxalate Crystal (None Prsent) COVID-19 Eval Order Covid19 at [facility] SARS-CoV-2 (PCR) NEGATIVE (Negative) Administered Medications Vancomycin HCl 2,250 mg/ (Sodium Chloride) 545 mls @ 200 mls/hr IV NOW ONE Stop: 06/21/21 23:41 Last Admin: 06/21/21 21:29 Dose: 200 mls/hr Documented by: [id number] Discontinued Medications Piperacillin Sod/Tazobactam Sod (Zosyn) 4.5 gm in 120 mls @ 240 mls/hr IV NOW ONE Stop: 06/21/21 21:27 Last Infusion: 06/21/21 21:39 Dose: 0 mls/hr Documented by: [id number] Admin: 06/21/21 21:04 Dose: 240 mls/hr Documented by: [id number] Imaging Data Radiologist's Impression: Ankle X-Ray 06/21/21 19:49 XR foot LT 2V, XR ankle LT 2V HISTORY: 70 years-old Male concern for osteo 2nd-3rd toes spreads to mid foot chronic pain of the left foot and ankle. Clinical concern prostate myelitis COMPARISON: None TECHNIQUE: 2 views of the left foot with 2 views of the left ankle FINDINGS: FOOT: Mild multifocal osteoarthritis. No acute fracture, dislocation or osseous erosion.. Moderate sized enthesophytes of the calcaneus. No opaque foreign body. Moderate diffuse soft tissue prominence. Small ankle joint effusion. ANKLE: Moderate circumferential soft tissue swelling of the ankle. Mild tibiotalar osteoarthritis with ankle joint effusion. Moderate sized enthesophytes of the calcaneus. IMPRESSION: Soft tissue swelling without acute fracture or osseous erosion. ACT 112: Negative or not required by law. The above report was generated using voice recognition software. It may contain grammatical, syntax or spelling errors. Electronically signed by: Jay Marks M.D. 06/21/2021 8:43 PM Foot X-Ray 06/21/21 19:49 XR foot LT 2V, XR ankle LT 2V HISTORY: 70 years-old Male concern for osteo 2nd-3rd toes spreads to mid foot chronic pain of the left foot and ankle. Clinical concern prostate myelitis COMPARISON: None TECHNIQUE: 2 views of the left foot with 2 views of the left ankle FINDINGS: FOOT: Mild multifocal osteoarthritis. No acute fracture, dislocation or osseous erosion.. Moderate sized enthesophytes of the calcaneus. No opaque foreign body. Moderate diffuse soft tissue prominence. Small ankle joint effusion. ANKLE: Moderate circumferential soft tissue swelling of the ankle. Mild tibiotalar osteoarthritis with ankle joint effusion. Moderate sized enthesophytes of the calcaneus. IMPRESSION: Soft tissue swelling without acute fracture or osseous erosion. ACT 112: Negative or not required by law. The above report was generated using voice recognition software. It may contain grammatical, syntax or spelling errors. Electronically signed by: Jay Marks M.D. 06/21/2021 8:43 PM Foot X-Ray 06/21/21 19:49 XR foot RT 2V HISTORY: 70 years-old Male Concern for osteo 1st toe, spreads to mid foot chronic right foot pain. Clinical concern for prostatitis COMPARISON: [Radiographs of same day TECHNIQUE: 2 views of the right foot FINDINGS: Moderate sized enthesophytes of the calcaneus. Mild multifocal osteoarthritis. Bipartite lateral hallux sesamoid. No acute fracture, dislocation, opaque foreign body or osseous erosion. Mild diffuse soft tissue prominence. IMPRESSION: Soft tissue swelling without acute fracture or osseous erosion. ACT 112: Negative or not required by law. The above report was generated using voice recognition software. It may contain grammatical, syntax or spelling errors. Electronically signed by: Jay Marks M.D. 06/21/2021 8:40 PM ECG Data Additional Comments: sinus tachycardia 103 BPM with possible left atrial enlargement and RBBB, no concern for acute ischemic change Discharge Plan Visit Data Chief Complaint: Foot Injury/Pain Stated Complaint: PAIN IN BOTH FEET ED Provider: Dwight Parkinson ED Midlevel Provider: Britt Peck Discharge Problem: Cellulitis of foot, left, Cellulitis of foot, right Patient Disposition: Admitted As Inpatient Discharge Instructions Interventions: ED Discharge Assessment Last Done: 06/21/21 22:24 Forms Stand Alone Forms: [facility] Prescriptions Prescriptions: No Action multivitamin [Multiple Vitamin] Tablet 1 tab PO WK RF: 0 cyanocobalamin (vitamin B-12) [Vitamin B-12] 1,000 mcg Tablet 1,000 mcg PO WK RF: 0 aspirin [Aspirin Low Dose] 81 mg Tablet,Delayed Release (Dr/Ec) 81 mg PO DAILY RF: 0 ascorbic acid (vitamin C) [Vitamin C] 500 mg Tablet 500 mg PO DAILY RF: 0 lisinopril 10 mg Tablet 15 mg PO HS RF: 0 cholecalciferol (vitamin D3) [Vitamin D3] 25 mcg (1,000 unit) Tablet 25 mcg PO DAILY RF: 0 PreserVision AREDS [id number] Capsule 1 cap PO DAILY RF: 0 [id number] [krill oil] 1,[id number] mg Capsule 2 cap PO DAILY PRN (Reason: eats no fish that day) RF: 0 terazosin 2 cap PO HS RF: 0 Referrals Referrals: PCP,NO [Primary Care Provider] -
[2021-06-21] MEDS ORDERED: OMEGA-3 (PURIFIED FISH OIL) 1 GM CAP PO PRN (23:09)
[2021-06-21] MEDS ORDERED: ONDANSETRON INJ 2 MG/ML 2 ML VIAL IV PRN (23:09)
[2021-06-21] MEDS ORDERED: ACETAMINOPHEN 325 MG TAB PO PRN (23:09)
[2021-06-22] MEDS: TERAZOSIN HCL 1 MG CAP PO SCH ×2 (01:06→21:22)
[2021-06-22] MEDS: PIPERACILLIN/TAZOBACTAM 3.375 GM in DEXTROSE 5% 100 ML IV SCH ×3 (01:41→17:10)
[2021-06-22 06:09] LABS: Basophils # (auto) 0.01 K/uL (0-0.2); Basophils % (auto) 0.1 %; Eosinophils # (auto) 0.14 K/uL (0-0.5); Eosinophils % (auto) 1.6 %; Hematocrit (blood only) 27.7 % (42-52); Hemoglobin 8.9 g/dL (14.0-18.0); Immature Granulocytes # (auto) 0.02 K/uL (0.00-0.02); Immature Granulocytes % (auto) 0.2 %; Lymphocytes # (auto) 1.79 K/uL (1.2-3.4); Lymphocytes % (auto) 20.6 %; Mean Corpuscular Hgb Conc 32.1 g/dL (32-36); Mean Corpuscular Volume 87.1 fL (80-100); Mean Platelet Volume 8.5 fL (7.4-10.4); Monocytes # (auto) 0.51 K/uL (0.11-0.59); Monocytes % (auto) 5.9 %; Neutrophils # (auto) 6.24 K/uL (1.4-6.5); Neutrophils % (auto) 71.6 %; Platelet Count 373 K/uL (130-400); RDW Coefficient of Variation 13.8 % (11.5-14.5); RDW Standard Deviation 44.3 fL (36.4-46.3); Red Blood Count 3.18 M/uL (4.7-6.1); White Blood Count 8.71 K/uL (4.8-10.8)
[2021-06-22 06:52] LABS: Albumin Level 2.4 gm/dl (3.4-5.0); BUN Creatinine Ratio 13.5 (10-20); Calcium 8.8 mg/dl (8.5-10.1); Creatinine Clr Calc Pharmacy 91.8 ml/min; Est GFR (African American) 102.6 ml/min; Est GFR (Non-African American) 88.5 ml/min; Potassium 3.3 mmol/L (3.5-5.1)
[2021-06-22 06:56] LABS: Albumin Globulin Ratio 0.6 (0.9-2); Bilirubin,Total 0.3 mg/dl (0.2-1); Globulin 4.3 gm/dl (2.5-4.0); Total Protein 6.7 gm/dl (6.4-8.2)
[2021-06-22] MEDS: VANCOMYCIN HCL 1,000 MG in SODIUM CHLORIDE 0.9% 250 ML IV SCH ×2 (09:10→21:26)
[2021-06-22] MEDS: CEROVITE ADV FORMULA TAB PO SCH (09:11)
[2021-06-22] MEDS: CHOLECALCIFEROL 1,000 UNITS 25 MCG TAB PO SCH (09:11)
[2021-06-22] MEDS: ASCORBIC ACID 500 MG TAB PO SCH (09:11)
[2021-06-22] MEDS: ASPIRIN 81 MG ECTAB PO SCH (09:11)
--- NOTE | 2021-06-22 09:59 | Pharmacy Report ---
Pharmacy Vanc AUC Short Note - Date of Service June 22, 2021 - Assessment & Plan Assessment 70 year old M receiving vancomycin and zosyn for b/l foot cellulitis. Cultures pending Plan Vancomycin * AUC/RAJINDER is the preferred PK/PD target for vancomycin * AUC guided dosing is effective and associated with decreased risk of nephrotoxicity compared to traditional trough targets * Given loading dose of vancomycin 2250 mg x 1, then started on vancomycin 1 gm iv q 12 hr dosing * Dosing estimated to give trough level of ~16 mcg/mL is predicted to achieve target AUC/RAJINDER of 400-600 mg/L.hr and may be associated with a 11 % risk of nephrotoxicity * Plan to collect trough if continued >48 hrs Pharmacy will continue to follow and will adjust dose/frequency as necessary. Thank you.
--- NOTE | 2021-06-22 10:53 | Hospitalist Progress Note ---
Date of Service June 22, 2021 Assessment & Plan (1) Cellulitis of foot, left: Plan: Cellulitis of right and left foot. Examination was suggestive of gout on admission; however, uric acid levels were in the low to mid normal range. - Seen with ortho PA on 06/22; in agreement it does look like cellulitis, especially with improvement with abx. - Continue IV abx. - Repeat LLE Doppler as he feels tender cord in thigh. (2) Cellulitis of foot, right: Plan: See above (3) HTN (hypertension): Plan: BP today is 170/80. - Continue lisinopril - Monitor (4) BPH (benign prostatic hyperplasia): Plan: - Continue terazosin (5) DVT prophylaxis: Plan: Heparin 5,000 units SQ Q12h Admission and Anticipated Discharge Date Admission Date: June 21, 2021 Subjective Feeling much improved today. Less redness and pain with the foot. Some upper thigh pain. Reports no fevers/chills, chest pain, shortness of breath, abdominal pain, nausea, or vomiting. Physical Exam Constitutional: WD/WN, vitals as above Eyes: EOM intact bilaterally; no conjunctival abnormality ENMT: external ear and nose normal, oropharynx normal Neck: trachea midline, no thyromegaly normal visual inspection Respiratory: normal respiratory effort, lungs clear to auscultation no respiratory distress Cardiovascular: RRR, no murmur, no edema Gastrointestinal (Abdomen): Inspection/Auscultation: abdomen normal to ins pection; abdomen not distended Musculoskeletal: no cyanosis or clubbing, extremities motor strength 5/5 Skin: + induration (Left ankle and right big toe) Neurologic: moves all extremities and awake Psychiatric: Orientation: alert, oriented to person and cooperative Results & Data Results & Data ([facility]) Vital Signs (Past 12 Hours) Vital Signs Temp Pulse Resp BP Pulse Ox 06/22/21 07:01 36.7 C 91 H 20 172/83 H 94 06/22/21 03:25 36.8 C 104 H 20 178/81 H 94 06/21/21 23:09 36.7 C 88 16 183/92 H 96 PG Care Time/CCT Total # of Minutes Spent Total Time Spent with Patient: Total time spent is greater than 50% in coordination of care (as documented) at patient's floor/unit and/or counseling patient: Coding Level of Care Code 59256 Subseq Hosp Care Lvl 3 Diagnoses Cellulitis of foot, left L03.116 Cellulitis of foot, right L03.115 HTN (hypertension) I10 BPH (benign prostatic hyperplasia) N40.0 DVT prophylaxis Z29.9
--- NOTE | 2021-06-22 12:05 | Ultrasound Report ---
US venous doppler LE LT CLINICAL HISTORY: Pain, swelling, tenderness COMPARISON: None available at the time of this dictation. TECHNIQUE: Left lower extremity real-time compression venous ultrasound with Color Doppler imaging. Utilizing real-time ultrasonic imaging multiple real time high-resolution ultrasonic images with comp ression and noncompression maneuvers of the deep venous system in addition to color doppler imaging w ere performed from the common femoral vein through the proximal calf veins. FINDINGS: Currently there is normal compressibility of the deep venous system from the common femoral vein thro ugh the proximal calf veins. No current evidence of acute thrombosis is identified. Incidentally note d, there is a left inguinal node measuring 4.3 x 4.1 x 1.1 cm with a prominent fatty hilum. Impression: No evidence of deep venous thrombus. ACT 112: Negative or not required by law. Electronically signed by: Shin Oswald M.D. 06/22/2021 12:04 PM
[2021-06-22] MEDS: lisinopril 5 MG TAB PO SCH (21:22)
[2021-06-22] MEDS: HEPARIN SOD 5,000 UNIT/0.5 ML VIAL SQ SCH (21:22)
[2021-06-23] MEDS: PIPERACILLIN/TAZOBACTAM 3.375 GM in DEXTROSE 5% 100 ML IV SCH ×2 (01:12→10:13)
--- NOTE | 2021-06-23 05:30 | Electrocardiogram Report ---
Test Reason : Blood Pressure : / mmHG Vent. Rate : 103 BPM Atrial Rate : 103 BPM P-R Int : 208 ms QRS Dur : 130 ms QT Int : 352 ms P-R-T Axes : 071 003 047 degrees QTc Int : 461 ms Sinus tachycardia with 1st degree A-V block Possible Left atrial enlargement Right bundle branch block Abnormal ECG No previous ECGs available Confirmed by Mervin King ([id number]) on 06/23/2021 5:30:13 AM Referred By: REFERRED SELF Confirmed By:Mervin King
[2021-06-23 05:54] LABS: Basophils # (auto) 0.02 K/uL (0-0.2); Basophils % (auto) 0.2 %; Eosinophils # (auto) 0.19 K/uL (0-0.5); Eosinophils % (auto) 2.3 %; Hematocrit (blood only) 29.4 % (42-52); Hemoglobin 9.4 g/dL (14.0-18.0); Immature Granulocytes # (auto) 0.02 K/uL (0.00-0.02); Immature Granulocytes % (auto) 0.2 %; Lymphocytes # (auto) 2.09 K/uL (1.2-3.4); Lymphocytes % (auto) 25.1 %; Mean Corpuscular Hemoglobin 27.8 pg (25-34); Mean Platelet Volume 8.7 fL (7.4-10.4); Monocytes # (auto) 0.44 K/uL (0.11-0.59); Monocytes % (auto) 5.3 %; Neutrophils # (auto) 5.57 K/uL (1.4-6.5); Neutrophils % (auto) 66.9 %; Platelet Count 395 K/uL (130-400); RDW Coefficient of Variation 13.9 % (11.5-14.5); RDW Standard Deviation 44.3 fL (36.4-46.3); Red Blood Count 3.38 M/uL (4.7-6.1); White Blood Count 8.33 K/uL (4.8-10.8)
[2021-06-23 06:27] LABS: Albumin Level 2.5 gm/dl (3.4-5.0); BUN Creatinine Ratio 10.2 (10-20); Creatinine Clr Calc Pharmacy 87.6 ml/min; Est GFR (African American) 100.6 ml/min; Est GFR (Non-African American) 86.8 ml/min; Potassium 3.3 mmol/L (3.5-5.1)
[2021-06-23 06:29] LABS: Albumin Globulin Ratio 0.6 (0.9-2); Bilirubin,Total 0.4 mg/dl (0.2-1); Globulin 4.4 gm/dl (2.5-4.0); Total Protein 6.9 gm/dl (6.4-8.2)
[2021-06-23] MEDS ORDERED: POTASSIUM CHLORIDE CRTAB 20 MEQ TABCR PO STA (07:06)
[2021-06-23] MEDS: ASCORBIC ACID 500 MG TAB PO SCH (08:34)
[2021-06-23] MEDS: CHOLECALCIFEROL 1,000 UNITS 25 MCG TAB PO SCH (08:34)
[2021-06-23] MEDS: ASPIRIN 81 MG ECTAB PO SCH (08:34)
[2021-06-23] MEDS: CEROVITE ADV FORMULA TAB PO SCH (08:34)
[2021-06-23] MEDS: HEPARIN SOD 5,000 UNIT/0.5 ML VIAL SQ SCH ×3 (08:35→21:00)
[2021-06-23] MEDS: VANCOMYCIN HCL 1,000 MG in SODIUM CHLORIDE 0.9% 250 ML IV SCH ×2 (10:14→21:00)
--- NOTE | 2021-06-23 14:23 | Hospitalist Progress Note ---
Date of Service June 23, 2021 Assessment & Plan (1) Cellulitis of foot, left: Plan: Cellulitis of right great toe and left foot. Examination was suggestive of gout on admission; however, uric acid levels were in the low to mid normal range. - Seen with ortho PA on 06/22; in agreement it does look like cellulitis, especially with improvement with abx. - LLE Doppler on 06/22 was negative for DVT. - Continue IV abx. -> Leg improved in look, but very tender to touch. Will get MRI after discussion with orthopedic PA. Consider empiric colchicine. Ortho feels there is not enough fluid for aspiration. - Possibly CPPD given normal uric acid level. (2) Cellulitis of foot, right: Plan: See above (3) HTN (hypertension): Plan: BP today is 150/70. - Continue lisinopril - Monitor (4) BPH (benign prostatic hyperplasia): Plan: - Continue terazosin (5) DVT prophylaxis: Plan: Heparin 5,000 units SQ Q12h Admission and Anticipated Discharge Date Admission Date: June 21, 2021 Subjective Foot looks better, but pain is still present. Reports no fevers/chills, chest pain, shortness of breath, abdominal pain, nausea, or vomiting. Physical Exam Constitutional: WD/WN, vitals as above Eyes: EOM intact bilaterally; no conjunctival abnormality ENMT: external ear and nose normal, oropharynx normal Neck: trachea midline, no thyromegaly normal visual inspection Respiratory: normal respiratory effort, lungs clear to auscultation no respiratory distress Cardiovascular: RRR, no murmur, no edema Gastrointestinal (Abdomen): Inspection/Auscultation: abdomen normal to inspection; abdomen not distended Musculoskeletal: no cyanosis or clubbing, extremities motor strength 5/5 Skin: + induration (Left ankle and right big toe (improving)) Neurologic: moves all extremities and awake Psychiatric: Orientation: alert, oriented to person and cooperative Results & Data Results & Data ([facility]) Vital Signs (Past 12 Hours) Vital Signs Temp Pulse Resp BP Pulse Ox 06/23/21 07:33 36.4 C L 75 18 147/69 H 96 PG Care Time/CCT Total # of Minutes Spent Total Time Spent with Patient: Total time spent is greater than 50% in coordination of care (as documented) at patient's floor/unit and/or counseling patient: Coding Level of Care Code 22924 Subseq Hosp Care Lvl 2 Diagnoses Cellulitis of foot, left L03.116 Cellulitis of foot, right L03.115 HTN (hypertension) I10 BPH (benign prostatic hyperplasia) N40.0 DVT prophylaxis Z29.9
--- NOTE | 2021-06-23 19:26 | XRay Report ---
RIGHT KNEE 3 VIEWS CLINICAL HISTORY: Calcium pyrophosphate deposition. FINDINGS: AP, crosstable lateral, and sunrise views of the right knee are obtained. No prior studies are available for comparison at the time of dictation. The skeletal structures are osteopenic. No fra cture is seen. There is mild tricompartmental degenerative joint space narrowing, greatest at the pat ellofemoral articulation. There are tiny lateral marginal osteophytes, degenerative beaking of the ti bial spine, and a superior patellar enthesophyte. A calcified fabella is incidentally noted. No joint effusion is identified. The overlying soft tissues are normal in appearance. IMPRESSION: Mild degenerative change as above with no acute bony abnormality identified. Electronically signed by: Garett Regalado M.D. 06/23/2021 7:25 PM
--- NOTE | 2021-06-23 19:59 | XRay Report ---
LEFT KNEE 3 VIEWS CLINICAL HISTORY: Calcium pyrophosphate deposition. FINDINGS: AP, crosstable lateral, and sunrise views of the left knee are obtained. No prior studies a re available for comparison at the time of dictation. The skeletal structures are osteopenic. No frac ture is seen. There is mild tricompartmental degenerative joint space narrowing. There are patellar e nthesophytes, marginal osteophytes, and bony overgrowth from the anterior tibial tuberosity. No large joint effusion is identified. The overlying soft tissues are within normal limits. IMPRESSION: Mild degenerative change as above with no acute bony abnormality identified. Electronically signed by: Garett Regalado M.D. 06/23/2021 7:58 PM
--- NOTE | 2021-06-23 20:18 | XRay Report ---
LEFT WRIST 2 VIEWS CLINICAL HISTORY: Calcium pyrophosphate deposition. FINDINGS: AP and lateral views of the left wrist are obtained. No prior studies are available for [facility] at the time of dictation. The skeletal structures are osteopenic. No fracture is seen. There is mild degenerative narrowing at the radiocarpal articulation. Minimal osteoarthritic change is seen at the first carpometacarpal articulation. No erosive disease is identified. The overlying soft tiss ues are normal as visualized. An IV catheter is present along the dorsal aspect of the hand. IMPRESSION: No acute bony abnormality is identified. Electronically signed by: Garett Regalado M.D. 06/23/2021 8:16 PM
--- NOTE | 2021-06-23 20:19 | XRay Report ---
RIGHT WRIST 2 VIEWS CLINICAL HISTORY: Calcium pyrophosphate deposition. FINDINGS: AP and lateral views of the right wrist are obtained. No prior studies are available for co mparison at the time of dictation. The skeletal structures are osteopenic. No fracture is seen. There is mild negative ulnar variance. Mild degenerative narrowing is seen at the radiocarpal articulation . Tiny ossific densities are noted adjacent to the ulnar styloid. Minimal osteoarthritic change is se en at the first carpometacarpal articulation. Mild osteoarthritic change is also seen at the first, s econd, and third metacarpophalangeal joints. No erosive disease is identified. The overlying soft tis sues are normal as visualized. IMPRESSION: No acute bony abnormality is identified. Electronically signed by: Garett Regalado M.D. 06/23/2021 8:17 PM
[2021-06-23] MEDS: lisinopril 5 MG TAB PO SCH (21:00)
[2021-06-23] MEDS: TERAZOSIN HCL 1 MG CAP PO SCH (21:00)
[2021-06-24] MEDS: CEROVITE ADV FORMULA TAB PO SCH (08:43)
[2021-06-24] MEDS: ASCORBIC ACID 500 MG TAB PO SCH (08:43)
[2021-06-24] MEDS: ASPIRIN 81 MG ECTAB PO SCH (08:43)
[2021-06-24] MEDS: CHOLECALCIFEROL 1,000 UNITS 25 MCG TAB PO SCH (08:43)
[2021-06-24] MEDS: HEPARIN SOD 5,000 UNIT/0.5 ML VIAL SQ SCH ×2 (08:44→20:46)
[2021-06-24] MEDS ORDERED: VANCOMYCIN TROUGH ONE (09:30)
[2021-06-24 09:46] LABS: Basophils # (auto) 0.01 K/uL (0-0.2); Basophils % (auto) 0.1 %; Eosinophils # (auto) 0.26 K/uL (0-0.5); Eosinophils % (auto) 2.7 %; Hematocrit (blood only) 28.7 % (42-52); Hemoglobin 9.2 g/dL (14.0-18.0); Immature Granulocytes # (auto) 0.02 K/uL (0.00-0.02); Immature Granulocytes % (auto) 0.2 %; Lymphocytes # (auto) 1.66 K/uL (1.2-3.4); Lymphocytes % (auto) 17.5 %; Mean Corpuscular Hemoglobin 27.6 pg (25-34); Mean Corpuscular Hgb Conc 32.1 g/dL (32-36); Mean Corpuscular Volume 86.2 fL (80-100); Mean Platelet Volume 8.7 fL (7.4-10.4); Monocytes # (auto) 0.38 K/uL (0.11-0.59); Neutrophils # (auto) 7.16 K/uL (1.4-6.5); Neutrophils % (auto) 75.5 %; Platelet Count 483 K/uL (130-400); RDW Coefficient of Variation 13.8 % (11.5-14.5); RDW Standard Deviation 43.9 fL (36.4-46.3); Red Blood Count 3.33 M/uL (4.7-6.1); White Blood Count 9.49 K/uL (4.8-10.8)
[2021-06-24 10:08] LABS: Albumin Level 2.7 gm/dl (3.4-5.0); BUN Creatinine Ratio 11.8 (10-20); Calcium 9.3 mg/dl (8.5-10.1); Creatinine Clr Calc Pharmacy 79.4 ml/min; Est GFR (African American) 91.8 ml/min; Est GFR (Non-African American) 79.2 ml/min; Potassium 3.8 mmol/L (3.5-5.1)
[2021-06-24] MEDS: VANCOMYCIN HCL 1,000 MG in SODIUM CHLORIDE 0.9% 250 ML IV SCH (10:11)
[2021-06-24 10:28] LABS: Albumin Globulin Ratio 0.6 (0.9-2); Bilirubin,Total 0.4 mg/dl (0.2-1); Globulin 4.5 gm/dl (2.5-4.0); Total Protein 7.2 gm/dl (6.4-8.2)
--- NOTE | 2021-06-24 10:41 | Pharmacy Report ---
Pharmacy Vanc AUC Short Note - Date of Service June 24, 2021 - Assessment & Plan Assessment 70 year old M receiving vancomycin for treatment of bilateral foot cellulitis. Pertinent microbiologic data includes: Blood cultures show no growth at 48 hours. Renal function stable. Remains afebrile with no overt leukocytosis. Zosyn discontinued yesterday, now receiving vancomycin monotherapy. Day # 4 of antimicrobial therapy. Plan Vancomycin * AUC/RAJINDER is the preferred PK/PD target for vancomycin * AUC guided dosing is effective and associated with decreased risk of nephrotoxicity compared to traditional trough targets * Trough level of 10.9 mcg/mL is predicted to achieve target AUC/RAJINDER of 400-600 mg/L.hr and may be associated with a 9 % risk of nephrotoxicity * Continue dose of 1000 mg IV every 12 hours * Will order follow-up trough as needed Pharmacy will continue to follow and will adjust dose/frequency as necessary. Thank you.
[2021-06-24] MEDS: predniSONE 20 MG TAB PO SCH (11:06)
--- NOTE | 2021-06-24 12:54 | Hospitalist Progress Note ---
Date of Service June 24, 2021 Assessment & Plan (1) Polyarthritis: Plan: Initially thought cellulitis of right great toe and left foot. Examination was suggestive of gout on admission; however, uric acid levels were in the low to mid normal range. - Seen with ortho PA on 06/22; in agreement it does look like cellulitis, especially with improvement with abx. - LLE Doppler on 06/22 was negative for DVT. -> Leg improved in look, but very tender to touch. - Stop abx. As more hx comes to light, this issues has been ongoing for weeks. Unlikely to be infection. Will get MRI. Discussed with rheum on 06/23. - Ordered RF for possible rheumatoid arthritis. (2) HTN (hypertension): Plan: BP today is 185/90. - Continue lisinopril - Monitor (3) BPH (benign prostatic hyperplasia): Plan: - Continue terazosin (4) DVT prophylaxis: Plan: Heparin 5,000 units SQ Q12h Admission and Anticipated Discharge Date Admission Date: June 21, 2021 Subjective Foot continues to look inflamed today. Reports no fevers/chills, chest pain, shortness of breath, abdominal pain, nausea, or vomiting. Physical Exam Constitutional: WD/WN, vitals as above Eyes: EOM intact bilaterally; no conjunctival abnormality ENMT: external ear and nose normal, oropharynx normal Neck: trachea midline, no thyromegaly normal visual inspection Respiratory: normal respiratory effort, lungs clear to auscultation no respiratory distress Cardiovascular: RRR, no murmur, no edema Gastrointestinal (Abdomen): Inspection/Auscultation: abdomen normal to inspection; abdomen not distended Musculoskeletal: no cyanosis or clubbing, extremities motor strength 5/5 Skin: + induration (Left ankle and right big toe (stable)) Neurologic: moves all extremities and awake Psychiatric: Orientation: alert, oriented to person and cooperative Results & Data Results & Data ([facility]) Vital Signs (Past 12 Hours) Vital Signs Temp Pulse Resp BP Pulse Ox 06/24/21 12:00 36.8 C 88 18 184/88 H 94 06/24/21 08:00 36.7 C 85 18 174/90 H 98 PG Care Time/CCT Total # of Minutes Spent Total Time Spent with Patient: Total time spent is greater than 50% in coordination of care (as documented) at patient's floor/unit and/or counseling patient: Coding Level of Care Code 47923 Subseq Hosp Care Lvl 2 Diagnoses HTN (hypertension) I10 BPH (benign prostatic hyperplasia) N40.0 DVT prophylaxis Z29.9 Polyarthritis M13.0
[2021-06-24] MEDS ORDERED: COUGH DROP (SUGAR FREE) LOZ 24 LOZ/1 BOX BUCCAL PRN (12:57)
[2021-06-24] MEDS: IBUPROFEN 200 MG TAB PO SCH ×2 (13:53→20:44)
[2021-06-24] MEDS: FAMOTIDINE 20 MG TAB PO SCH (13:53)
[2021-06-24] MEDS ORDERED: LOPERAMIDE HCL 2 MG CAP PO PRN (15:28)
[2021-06-24] MEDS: lisinopril 5 MG TAB PO SCH (20:44)
[2021-06-24] MEDS: TERAZOSIN HCL 1 MG CAP PO SCH (20:44)
--- NOTE | 2021-06-24 20:46 | Magnetic Resonance Report ---
MR ankle LT wo con CLINICAL HISTORY: Osteomyelitis swelling of the left ankle for 7 weeks without inciting injury. TECHNIQUE: Multisequence, multiplanar MR images of the right ankle were obtained without contrast.. COMPARISON: None available at the time of this dictation. FINDINGS: Soft tissue swelling is seen about the ankle. There is minimal edema about the medial malleolus. IMPRESSION: Diffuse soft tissue swelling about the ankle compatible with cellulitis. Edema in the medial malleolu s may represent early osteomyelitis. ACT 112: Negative or not required by law. Electronically signed by: Shin Oswald M.D. 06/24/2021 8:45 PM
[2021-06-25 07:27] LABS: BUN Creatinine Ratio 19.1 (10-20); Calcium 9.1 mg/dl (8.5-10.1); Creatinine Clr Calc Pharmacy 79.4 ml/min; Est GFR (African American) 91.8 ml/min; Est GFR (Non-African American) 79.2 ml/min; Potassium 3.5 mmol/L (3.5-5.1)
[2021-06-25] MEDS: HEPARIN SOD 5,000 UNIT/0.5 ML VIAL SQ SCH ×2 (08:55→20:51)
[2021-06-25] MEDS: predniSONE 20 MG TAB PO SCH (08:56)
[2021-06-25] MEDS: ASPIRIN 81 MG ECTAB PO SCH (08:56)
[2021-06-25] MEDS: ASCORBIC ACID 500 MG TAB PO SCH (09:00)
[2021-06-25] MEDS ORDERED: MULTIVITAMIN TAB PO SCH (09:00)
[2021-06-25] MEDS ORDERED: CYANOCOBALAMIN 500 MCG TABLET (VITAMIN B-12) PO SCH (09:00)
[2021-06-25] MEDS: IBUPROFEN 200 MG TAB PO SCH ×3 (09:00→20:50)
[2021-06-25] MEDS: CHOLECALCIFEROL 1,000 UNITS 25 MCG TAB PO SCH (09:01)
[2021-06-25] MEDS: CEROVITE ADV FORMULA TAB PO SCH (09:02)
[2021-06-25] MEDS: FAMOTIDINE 20 MG TAB PO SCH (09:03)
--- NOTE | 2021-06-25 16:09 | Hospitalist Progress Note ---
Date of Service June 25, 2021 Assessment & Plan (1) Polyarthritis: Plan: Initially thought cellulitis of right great toe and left foot. Examination was suggestive of gout on admission; however, uric acid levels were in the low to mid normal range. - LLE Doppler on 06/22 was negative for DVT. - Seen with ortho PA who felt there was no tapable fluid collection in either affected joint. X-rays all negative for erosive changes (RA) or microcrystals (CPPD). - Initially improved on abx, but pain returned on 06/24. Stopped all abx on 06/24. MRI showed soft tissue swelling, but no clear-cut infection. - Discussed with rheumatology on 06/23. Likely an inflammatory polyarthritis. Gout seems unlikely with low uric acid, but possibly pseudogout vs. RA. -> Ordered RF for possible rheumatoid arthritis Pending. - Improving dramatically on steroids and NSAIDs. Plan to discharge on steroid taper and NSAIDs PRN. Will actually see [place] rheumatology on 06/28/2021. Appointment had already been scheduled by patient prior to admission. Encouraged to keep this appointment. They can follow-up RF results. (2) HTN (hypertension): Plan: BP today is 160/90. - Continue lisinopril - Monitor (3) BPH (benign prostatic hyperplasia): Plan: - Continue terazosin (4) DVT prophylaxis: Plan: Heparin 5,000 units SQ Q12h Admission and Anticipated Discharge Date Admission Date: June 24, 2021 Subjective Doing much better today. Both left ankle and right toe feel a ton better. No pain honestly. They feel like a "normal" foot again. He reports he walked for several hours overnight. Physical Exam Constitutional: WD/WN, vitals as above Eyes: EOM intact bilaterally; no conjunctival abnormality ENMT: external ear and nose normal, oropharynx normal Neck: trachea midline, no thyromegaly normal visual inspection Respiratory: normal respiratory effort, lungs clear to auscultation no respiratory distress Cardiovascular: RRR, no murmur, no edema Gastrointestinal (Abdomen): Inspection/Auscultation: abdomen normal to ins pection; abdomen not distended Musculoskeletal: no cyanosis or clubbing, extremities motor strength 5/5 Skin: + induration (Left ankle and right big toe (improved)) Neurologic: moves all extremities and awake Psychiatric: Orientation: alert, oriented to person and cooperative Results & Data Results & Data ([facility]) Vital Signs (Past 12 Hours) Vital Signs Temp Pulse Pulse Resp BP Pulse Ox 06/25/21 15:31 36.8 C 93 H 18 161/88 H 94 06/25/21 12:40 36.7 C 92 H 16 181/83 H 95 06/25/21 07:52 36.5 C 85 18 170/89 H 98 PG Care Time/CCT Total # of Minutes Spent Total Time Spent with Patient: Total time spent is greater than 50% in coordination of care (as documented) at patient's floor/unit and/or counseling patient: Coding Level of Care Code 33763 Subseq Hosp Care Lvl 2 Diagnoses Polyarthritis M13.0 HTN (hypertension) I10 BPH (benign prostatic hyperplasia) N40.0 DVT prophylaxis Z29.9
[2021-06-25] MEDS: TERAZOSIN HCL 1 MG CAP PO SCH (20:52)
[2021-06-25] MEDS: lisinopril 5 MG TAB PO SCH (20:53)
[2021-06-26] MEDS: CEROVITE ADV FORMULA TAB PO SCH (08:41)
[2021-06-26] MEDS: ASPIRIN 81 MG ECTAB PO SCH (08:42)
[2021-06-26] MEDS: predniSONE 20 MG TAB PO SCH (08:42)
[2021-06-26] MEDS: FAMOTIDINE 20 MG TAB PO SCH (08:43)
[2021-06-26] MEDS: ASCORBIC ACID 500 MG TAB PO SCH (08:43)
[2021-06-26] MEDS: CHOLECALCIFEROL 1,000 UNITS 25 MCG TAB PO SCH (08:43)
[2021-06-26] MEDS: HEPARIN SOD 5,000 UNIT/0.5 ML VIAL SQ SCH (08:44)
[2021-06-26] MEDS: IBUPROFEN 200 MG TAB PO SCH (08:45)
--- NOTE | 2021-06-26 16:32 | Discharge Summary ---
Date of Service June 26, 2021 Admission HPI Per Admitting Provider The patient is a 70-year-old male with a past medical history including hillary B12 deficiency, hyperlipidemia, BPH with LUTS and obesity who presents to the emergency department as noted above. Abnormal laboratories: WBC 10.66, hemoglobin 10.0, hematocrit 31.4, platelets 429, ESR 98, albumin 3.1, potassium 3.2 and glucose 129. Bilateral foot and ankle x-rays show soft tissue swelling without acute fracture or osseous erosion Principal Diagnosis Inflammatory polyarthritis Discharge Exam Constitutional WD/WN, vitals as above Eyes EOM intact bilaterally; no conjunctival abnormality ENMT external ear and nose normal, oropharynx normal Neck trachea midline, no thyromegaly normal visual inspection Respiratory normal respiratory effort, lungs clear to auscultation no respiratory distress Cardiovascular RRR, no murmur, no edema Gastrointestinal (Abdomen) Inspection/Auscultation: abdomen normal to inspection; abdomen not distended Musculoskeletal no cyanosis or clubbing, extremities motor strength 5/5 Skin + induration (Left ankle and right big toe (improved)) Neurologic moves all extremities and awake Psychiatric Orientation: alert, oriented to person and cooperative Discharge Data Allergies Allergy/AdvReac Type Severity Reaction Status Date / Time Penicillins AdvReac Severe pain Verified 06/21/21 21:36 Consultations 06/21/21 21:51 ED Decision to Admit Stat 06/26/21 09:03 Burn CD for patient Routine Ordered Studies 06/22/21 10:53 US venous doppler LE LT Routine 06/24/21 12:50 MR ankle LT wo con Routine Hospital Course (1) Polyarthritis: Initially thought cellulitis of right great toe and left foot. Examination was suggestive of gout on admission; however, uric acid levels were in the low to mid normal range. - LLE Doppler on 06/22 was negative for DVT. - Seen with ortho PA who felt there was no tapable fluid collection in either affected joint. X-rays all negative for erosive changes (RA) or microcrystals (CPPD). - Initially improved on abx, but pain returned on 06/24. Stopped all abx on 06/24. MRI showed soft tissue swelling and medial malleolus edema, but no clear-cut infection or erosion. - Discussed with rheumatology on 06/23. Likely an inflammatory polyarthritis. Gout seems unlikely with low uric acid, but possibly pseudogout vs. RA. -> Ordered RF for possible rheumatoid arthritis Pending. - Improving dramatically on steroids and NSAIDs. Plan to discharge on steroid taper and NSAIDs PRN. Will actually see [place] rheumatology on 06/28/2021. Appo intment had already been scheduled by patient prior to admission. Encouraged to keep this appointment. They can follow-up RF results. CD burned for MRI and x- ray results. (2) HTN (hypertension): BP today is 160/90. - Continue lisinopril - Monitor (3) BPH (benign prostatic hyperplasia): - Continue terazosin (4) DVT prophylaxis: Heparin 5,000 units SQ Q12h Total Time Total Time Spent Total Time Spent (In Minutes): 35 Discharge Plan Discharge Items Patient Disposition: Home - Self-Care Reason For Visit: Toe & foot inflammation Discharge Diagnosis: Inflammatory polyarthritis Activity: Resume your previous activity Non-emergency contact: Primary Care Provider and Specialist Call non-emergency contact if: your symptoms worsen and your temperature is above 101 Follow-up/Referrals: PCP,NO [Primary Care Provider] - Diet: Regular Addtl Attending Provider Instructions: Mr. Candelaria, Florentin were admitted to the hospital with inflammation of the left ankle and right great toe. Initially, we thought this was an infection. However, with further information coming to light, I feel this is very unlikely. 1) You have had the pain in the left ankle for at least several weeks. The right toe is more recent, but also for a few days. Infections are very rarely this indolent and slow-moving. 2) You did not have a high "white count" or a fever, both of which are common with infections. 3) The pain, redness, and swelling did not improve with broad antibiotics over several days. 4) The pain, redness, and swelling did improve with steroids. You had also been on a prior steroid pack which had "half way" improved the pain. 5) The MRI showed some soft tissue swelling and swelling by the ankle, but no bony erosions which would be very likely if you'd had an infection for several weeks in the ankle. For all these reasons, infection seems *very* unlikely. I think you have an "inflammatory arthritis" which is a broad term that can encompass several diffe rent diseases. Gout is one (but this seems unlikely given your low uric acid levels). Another is pseudogout which mimics gout, but is caused by a different type of crystal in the joint space. This is possible, but the x-rays we took didn't show this. Another is rheumatoid arthritis. We did take a lab called a "rheumatoid factor" while you were in the hospital, but it is not back yet. The ordnance handler will be able to help give you an exact diagnosis. Please keep your rheumatology visit on Sunday. Please take this packet of information along with the disc holding your MRI and x-rays. Please take the steroid taper as follows: * Prednisone 40 mg daily for 3 days * Prednisone 30 mg daily for 3 days * Prednisone 20 mg daily for 3 days * Prednisone 10 mg daily for 3 days. That will give you plenty of time to see the ordnance handler who may extend your steroid taper or offer an alternative treatment. For breakthrough pain, use Advil (ibuprofen), Aleve (naproxen), or another NSAIDs which may be more effective than Tylenol. Take a stomach-acid ramesh to keep your stomach lining from getting irritated. Pending Studies at Discharge: Yes Studies:: Rheumatoid factor antibody Stand-Alone Forms: [facility] [employer], Smoking Cessation Medications and DC Order Prescriptions: New ibuprofen 200 mg Tablet 400 mg PO TID PRN (Reason: Pain) Qty: 0 RF: 0 famotidine 20 mg Tablet 20 mg PO QAM Qty: 30 RF: 0 prednisone 10 mg tablet 40 mg PO DAILY Qty: 30 RF: 0 Continued multivitamin Tablet 1 tab PO WK RF: 0 cyanocobalamin (vitamin B-12) [Vitamin B-12] 1,000 mcg Tablet 1,000 mcg PO WK RF: 0 aspirin [Aspirin Low Dose] 81 mg Tablet,Delayed Release (Dr/Ec) 81 mg PO DAILY RF: 0 ascorbic acid (vitamin C) [Vitamin C] 500 mg Tablet 500 mg PO DAILY RF: 0 lisinopril 10 mg Tablet 15 mg PO HS RF: 0 cholecalciferol (vitamin D3) [Vitamin D3] 25 mcg (1,000 unit) Tablet 25 mcg PO DAILY RF: 0 PreserVision AREDS 14,320-226-200 bobd-du-[id number] Capsule 1 cap PO DAILY RF: 0 bcytv-[id number]-zyv-imm-monfrzo-ast [krill oil] 1,778-913-33-80 mg Capsule 2 cap PO DAILY PRN (Reason: eats no fish that day) RF: 0 terazosin 2 cap PO HS RF: 0 Discharge Orders: Discharge Order (Routine); Ordered 06/26/21 Ordered By: Dirk Walton Admission Data Admit Date/Time: 06/24/21 12:50 Attending Provider: Dirk Walton Admit Provider: Brandon Johns Primary Care Provider: PCP,NO Other Providers: Dirk Walton ; [facility] Other Interventions: Discharge Summary Assessment (RN) Last Done: 06/26/21 13:41 Coding Level of Care Code D/C DAY MANAGEMENT >30 MINS Diagnoses Polyarthritis M13.0 HTN (hypertension) I10 BPH (benign prostatic hyperplasia) N40.0 DVT prophylaxis Z29.9
== END 2021-06-26 15:39 | disposition home or self-care (01) | DRG 554 ==
LOC: ED 17:28 → 2N 17:28 → SUATTDRO 21:27 → 2N 22:24

== ENCOUNTER 2021-06-30 18:06 | Inpatient (IN) ==
[2021-06-30] MEDS ORDERED: ONDANSETRON INJ 2 MG/ML 2 ML VIAL IV STA (20:24)
--- NOTE | 2021-06-30 20:28 | Emergency Department Note ---
History of Present Illness General Chief complaint: Diarrhea Stated complaint: CHILLS, WEAKNESS, FATIGUE Time Seen by Provider: 06/30/21 20:04 Source: patient and family History of Present Illness Provider complaint: Diarrhea Onset (ago): day(s) Location: abdomen Severity: severe Pain Consistency: + intermittent Quality: + other (Watery with mucus no blood) Relieved By: + none Exacerbated By: + eating Associated symptoms: + fever/chills, + nausea/vomiting (Dry heaves) and + weakne ss; no chest pain, no cough, no headaches or no shortness of breath This is a 70-year-old male who was recently discharged from the hospital for polyarthropathy presenting with diarrhea for about just over 24 hours. He has had multiple episodes over the past 24 hours and his diarrhea is very watery with mucus. There is no blood in it. He does have some abdominal discomfort which he describes as a cramping in the lower abdomen. He has had associated chills but no fever. He is dry heaving as well. He denies any chest pain but states that he has pain in his back behind his heart. This occurred 3 days ago. He states it feels like a very transient cramping. He denies any shortness of breath. He has had no urinary problems. His daughter states that he is generally noncompliant with his medications. He denies any cough or cold symptoms. He states he feels very weak in general from the diarrhea. He has never had a C. difficile infection. Home Medications Medication Instructions Recorded Confirmed Type ascorbic acid (vitamin C) 500 mg 500 mg PO DAILY 06/21/21 06/30/21 History tablet (Vitamin C) aspirin 81 mg tablet,delayed 81 mg PO DAILY 06/21/21 06/30/21 History release (Aspirin Low Dose) cholecalciferol (vitamin D3) 25 25 mcg PO DAILY 06/21/21 06/30/21 History mcg (1,000 unit) tablet (Vitamin D3) cyanocobalamin (vitamin B-12) 1,000 mcg PO WK 06/21/21 06/30/21 History 1,000 mcg tablet (Vitamin B-12) krill 1,000 mg-omega-3 170 mg-dha 2 cap PO DAILY PRN 06/21/21 06/30/21 History 50 mg-epa 80 zt-socvpf-eucqr capsule (krill oil) lisinopril 10 mg tablet 15 mg PO HS 06/21/21 06/30/21 History multivitamin 1 tab PO WK 06/21/21 06/30/21 History terazosin 2 cap PO HS 06/21/21 06/30/21 History vitamins A,C,Y-eppp-ywqkfj 14,320 1 cap PO DAILY 06/21/21 06/30/21 History unit-226 mg-200 unit capsule (PreserVision AREDS) famotidine 20 mg tablet 20 mg PO QAM #30 tab 06/26/21 06/30/21 Rx ibuprofen 200 mg tablet 400 mg PO TID PRN #0 tab 06/26/21 06/30/21 Rx prednisone 10 mg tablet 40 mg PO DAILY #30 tab 06/26/21 06/30/21 Rx Allergies Allergy/AdvReac Type Severity Reaction Status Date / Time Penicillins AdvReac Severe pain Verified 06/30/21 22:06 Past Med/Surg History Medical History BPH (benign prostatic hyperplasia) HTN (hypertension) Kidney stones Surgical History Hx of tonsillectomy Social History Smoking Status: Never smoker Hx Alcohol Use: No Hx Substance Use: Yes Non-Prescribed Medications: Marijuana Last Used Substance Other:: occasionally Preferred Language: Estonian Communication Ability: Effective Senior Compensation Analyst Required: No Beliefs That Will Affect Care: None Current Living Situation: Alone Feels Safe at Home: Yes Assistive Devices: Cane Review of Systems See HPI for pertinent positives & negatives. and A total of 10 systems reviewed and were otherwise negative Physical Exam Vital Signs Vital Signs - 24 hr 06/30/21 18:23 06/30/21 20:02 06/30/21 20:37 Temperature 36.9 C Temperature Source Temporal Artery Scan Pulse Rate 91 H 95 H Pulse Rate [Finger] Pulse Rhythm Regular Pulse Strength Normal Respiratory Rate 20 18 Respiratory Effort / Characteristics Non-Labored Spontaneous Respiratory Depth Normal Respiratory Pattern Regular Blood Pressure 164/83 H Blood Pressure [Left Arm] 144/74 H Blood Pressure Mean 110 Blood Pressure Mean [Left Arm] 97 Blood Pressure Position Sitting Pulse Oximetry 98 99 Oxygen Delivery Method Room Air Room Air Sepsis Recent Fever Within 48 Hours No Sepsis New/Unexplained Change in Mental Status No Sepsis Action Taken by Nursing No Action Required 06/30/21 20:58 06/30/21 22:29 07/01/21 00:09 Temperature Temperature Source Pulse Rate Pulse Rate [Finger] 89 87 96 H Pulse Rhythm Pulse Strength Respiratory Rate 18 18 18 Respiratory Effort / Characteristics Non-Labored Spontaneous Non-Labored Spontaneous Non-Labored Spontaneous Respiratory Depth Normal Normal Normal Respiratory Pattern Blood Pressure Blood Pressure [Left Arm] 183/86 H 186/86 H 197/90 H Blood Pressure Mean Blood Pressure Mean [Left Arm] 118 119 125 Blood Pressure Position Pulse Oximetry 98 96 98 Oxygen Delivery Method Room Air Room Air Room Air Sepsis Recent Fever Within 48 Hours Sepsis New/Unexplained Change in Mental Status Sepsis Action Taken by Nursing 07/01/21 01:00 Temperature Temperature Source Pulse Rate Pulse Rate [Finger] 88 Pulse Rhythm Pulse Strength Respiratory Rate 18 Respiratory Effort / Characteristics Non-Labored Spontaneous Respiratory Depth Normal Respiratory Pattern Blood Pressure Blood Pressure [Left Arm] 179/88 H Blood Pressure Mean Blood Pressure Mean [Left Arm] 118 Blood Pressure Position Pulse Oximetry 98 Oxygen Delivery Method Room Air Sepsis Recent Fever Within 48 Hours Sepsis New/Unexplained Change in Mental Status Sepsis Action Taken by Nursing Constitutional: Vital signs reviewed. Eyes: Pupils are equal round reactive to light. Conjunctiva are noninjected. ENT: Pharynx is clear without erythema or exudate. Mucous membranes are dry. Neck supple without meningeal signs. Respiratory: Clear to auscultation bilaterally. Breath sounds are equal bilaterally. Cardiovascular: Regular rate and rhythm. No rubs or gallops. GI: Soft, nondistended with minimal suprapubic tenderness. No guarding. Bowel sounds are present. Musculoskeletal: Swelling and tenderness to the left ankle and great toe. Integumentary: No cyanosis. or jaundice. Neurological: The patient is awake and alert. No focal deficits. Psychiatric: Normal affect. Not anxious appearing. Course Administered Medications Sodium Chloride (Nss) 500 mls @ 125 mls/hr IV .Q4H AIDAN Stop: 07/30/21 20:29 Last Admin: 06/30/21 20:44 Dose: 125 mls/hr Documented by: [id number] Potassium Chloride (K Scott / Wtr) 10 meq in 100 mls @ 100 mls/hr IV ONE ONE Stop: 07/01/21 01:34 Last Admin: 07/01/21 00:58 Dose: 100 mls/hr Documented by: [id number] Discontinued Medications Ondansetron HCl (Ondansetron Inj 2 Mg/Ml 2 Ml Vial) 4 mg IV NOW STA Stop: 06/30/21 20:25 Last Admin: 06/30/21 20:45 Dose: 4 mg Documented by: [id number] Raspberry (Raspberry Syrup 5 Ml Udp) 5 ml PO NOW ONE Stop: 07/01/21 00:46 Last Admin: 07/01/21 00:55 Dose: 5 ml Documented by: [id number] Vancomycin HCl (Vancomycin Hcl 125 Mg/2.5ml Soln) 125 mg PO NOW STA Stop: 07/01/21 00:36 Last Admin: 07/01/21 00:55 Dose: 125 mg Documented by: [id number] Medical Decision Making Differential Diagnosis Colitis, C. difficile, dehydration, electrolyte abnormality, bowel obstruction Medical Records Attestation: I reviewed the patient's medical records. I did perform a limited focused review of portions of the patient's old chart on the electronic medical record. The patient was just discharged from the hospital June 26 for polyarthropathy. He was on antibiotics for a period of time during his admission. Home Medications Current Medication List: was personally reviewed by me Laboratory Data Attestation: I reviewed the patient's lab results. Result diagrams: 06/30/21 19:54 06/30/21 19:54 Lab Results 06/30/21 06/30/21 06/30/21 Range/Units 19:54 19:54 20:04 WBC 15.60 H (4.8-10.8) K/uL RBC 4.46 L (4.7-6.1) M/uL Hgb 12.4 L (14.0-18.0) g/dL Hct 37.9 L (42-52) % MCV 85.0 (80-100) fL MCH 27.8 (25-34) pg MCHC 32.7 (32-36) g/dL RDW Std Deviation 45.1 (36.4-46.3) fL RDW Coeff of Cari 14.4 (11.5-14.5) % Plt Count 679 H (130-400) K/uL MPV 9.0 (7.4-10.4) fL Immature Gran % (Auto) 0.3 % Neut % (Auto) 77.0 % Lymph % (Auto) 17.8 % [place] % (Auto) 4.5 % Eos % (Auto) 0.3 % Baso % (Auto) 0.1 % Neut # (Auto) 12.00 H (1.4-6.5) K/uL Lymph # (Auto) 2.78 (1.2-3.4) K/uL [place] # (Auto) 0.70 H (0.11-0.59) K/uL Eos # (Auto) 0.05 (0-0.5) K/uL Baso # (Auto) 0.02 (0-0.2) K/uL Immature Gran # (Auto) 0.05 H (0.00-0.02) K/uL Sodium 134 L (136-145) mmol/L Potassium 2.9 L (3.5-5.1) mmol/L Chloride 98 (98-107) mmol/L Carbon Dioxide 25 (21-32) mmol/L Anion Gap 11.0 (3-11) BUN 14 (7-18) mg/dl Creatinine 1.06 (0.6-1.4) mg/dl Est Cr Clr Drug Dosing Not Reportable Est GFR ( Amer) 81.4 ml/min Est GFR (Non-Af Amer) 70.3 ml/min BUN/Creatinine Ratio 13.6 (10-20) Glucose 105 H (70-99) mg/dl Calcium 10.1 (8.5-10.1) mg/dl Total Bilirubin 0.5 (0.2-1) mg/dl AST 8 L (15-37) U/L ALT 16 (12-78) U/L Alkaline Phosphatase 63 (45-117) U/L Troponin I < 0.015 (0-0.045) ng/ml Total Protein 8.1 (6.4-8.2) gm/dl Albumin 3.1 L (3.4-5.0) gm/dl Globulin 5.0 H (2.5-4.0) gm/dl Albumin/Globulin Ratio 0.6 L (0.9-2) Lipase 64 L (73-393) U/L Urine Color Urine Appearance (Clear) Urine pH (4.5-7.5) Ur Specific [place] (1.000-1.030) Urine Protein (Negative) Urine Glucose (UA) (Negative) Urine Ketones (Negative) Urine Blood (Negative) Urine Nitrite (Negative) Urine Bilirubin (Negative) Urine Urobilinogen (Negative) Ur Leukocyte Esterase (Negative) Urine WBC (Auto) (0-5) /hpf Urine RBC (Auto) (0-4) /hpf U Hyaline Cast (Auto) (0-5) /lpf U Epithel Cells (Auto) (0-5) /lpf Urine Bacteria (Auto) (Negative) Ur Renal Epithelial Cell Calcium Oxalate Crystal (None Prsent) Stl C. diff Tox B Gene (Neg) Stl C.difficile Tox A&B (Negative) COVID-19 Eval Order Covid19 at [facility] SARS-CoV-2 (PCR) (Negative) 06/30/21 06/30/21 06/30/21 Range/Units 20:04 20:18 22:10 WBC (4.8-10.8) K/uL RBC (4.7-6.1) M/uL Hgb (14.0-18.0) g/dL Hct (42-52) % MCV (80-100) fL MCH (25-34) pg MCHC (32-36) g/dL RDW Std Deviation (36.4-46.3) fL RDW Coeff of Cari (11.5-14.5) % Plt Count (130-400) K/uL MPV (7.4-10.4) fL Immature Gran % (Auto) % Neut % (Auto) % Lymph % (Auto) % [place] % (Auto) % Eos % (Auto) % Baso % (Auto) % Neut # (Auto) (1.4-6.5) K/uL Lymph # (Auto) (1.2-3.4) K/uL [place] # (Auto) (0.11-0.59) K/uL Eos # (Auto) (0-0.5) K/uL Baso # (Auto) (0-0.2) K/uL Immature Gran # (Auto) (0.00-0.02) K/uL Sodium (136-145) mmol/L Potassium (3.5-5.1) mmol/L Chloride (98-107) mmol/L Carbon Dioxide (21-32) mmol/L Anion Gap (3-11) BUN (7-18) mg/dl Creatinine (0.6-1.4) mg/dl Est Cr Clr Drug Dosing Est GFR ( Amer) ml/min Est GFR (Non-Af Amer) ml/min BUN/Creatinine Ratio (10-20) Glucose (70-99) mg/dl Calcium (8.5-10.1) mg/dl Total Bilirubin (0.2-1) mg/dl AST (15-37) U/L ALT (12-78) U/L Alkaline Phosphatase (45-117) U/L Troponin I (0-0.045) ng/ml Total Protein (6.4-8.2) gm/dl Albumin (3.4-5.0) gm/dl Globulin (2.5-4.0) gm/dl Albumin/Globulin Ratio (0.9-2) Lipase (73-393) U/L Urine Color Yellow Urine Appearance Clear (Clear) Urine pH 7.0 (4.5-7.5) Ur Specific [place] 1.013 (1.000-1.030) Urine Protein 1+ H (Negative) Urine Glucose (UA) Negative (Negative) Urine Ketones Negative (Negative) Urine Blood Trace H (Negative) Urine Nitrite Negative (Negative) Urine Bilirubin Negative (Negative) Urine Urobilinogen Negative (Negative) Ur Leukocyte Esterase Trace H (Negative) Urine WBC (Auto) 5-10 H (0-5) /hpf Urine RBC (Auto) 0-4 (0-4) /hpf U Hyaline Cast (Auto) 5-10 H (0-5) /lpf U Epithel Cells (Auto) >30 H (0-5) /lpf Urine Bacteria (Auto) Negative (Negative) Ur Renal Epithelial Cell Not Reportable Calcium Oxalate Crystal Present A (None Prsent) Stl C. diff Tox B Gene Positive Cdiff Gene H (Neg) Stl C.difficile Tox A&B ToxinUninterpretable (Negative) COVID-19 Eval Order SARS-CoV-2 (PCR) NEGATIVE (Negative) Imaging Data Attestation: I personally reviewed and interpreted this imaging study as follows: My Impression: Acute abdominal series x-rays per my interpretation shows no acute cardiopulmonary process. There is no evidence of free air or bowel obstruction. Radiologist's Impression: Patient:YAZ SARMIENTO (Male) : 48 Status: ER Date: 06/30/21 23:18 Room #: History: DIARRHEA Slices: [id number] Priors: Tech: Stefano Bhagat @ [phone] Exams: CT ABDOMEN & PELVIS Without Contrast Contrast: Accession Numbers: [id number] Referring Physician: REFERRED SELF Preliminary Findings Only See Final Report For Complete Findings CT ABDOMEN & PELVIS Without Contrast: Mild circumferential wall thickening of the distal transverse and descending colon as well as the cecum, which may be due to under distention versus colitis. Prostatomegaly. Nonobstructing right renal calculus. No hydronephrosis. Left renal cyst. Scattered vascular calcifications. Unremarkable appendix. Radiologist: Leora Madden M.D. Study ready at 23:27 and initial results transmitted at 23:36 ECG Data Attestation: I personally reviewed and interpreted this ECG as follows: Indication: + weakness Rate (beats per minute): 89 Rhythm: + normal sinus ECG Intervals/blocks: + Right Bundle branch block ECG [place]: + Normal ECG Findings: no PVCs or no U waves Comparison ECG Date: from (June 21, 2021) Change: no significant change MDM Narrative I did evaluate the patient as noted above. The patient is presenting with diarrhea and generalized weakness for the past 24 hours. He was recently on antibiotics. IV access was established. I did treat him with normal saline IV. I did place an order for continuous cardiac monitoring. The monitor showed normal sinus rhythm at a rate of 87 bpm. I did order and personally review the patient's 12-lead EKG as described above. He has no acute ischemic changes. I did order and personally reviewed the images of the patient's chest and abdominal x-rays as described above. There is no evidence of pneumonia or obstruction. I did order a urine analysis. He has calcium oxalate crystals. There are some trace leukocyte esterase and some 5-10 WBCs. No nitrates. No bacteria. Greater than 30 epithelial cells. IDid order and review the patien nigel's blood work as noted in the electronic medical record. His white count is elevated over 15,000. He is anemic with a hemoglobin of 12.4. Platelet count is 679. Electrolytes show a potassium of 2.9 and a sodium of 134. Creatinine is 1.06 with a BUN of 14. Troponin is negative. Lipase is 64. I did order a CT of the abdomen and pelvis. I did review the images myself as well as the radiology report as described above. He has evidence of a nonspecific colitis. His stool was sent for culture and C. difficile testing. C. difficile antigen testing was positive. C. difficile toxin testing was inconclusive. Given his symptomatology and findings here I did feel that he likely had C. difficile colitis. He does feel too weak to go home and so he will be hospitalized for further care and evaluation. I did treat him with IV KCl. He was also given vancomycin 125 mg p.o. The case was discussed with the hospitalist and egg caser. Impression & Plan C. difficile colitis, Acute dehydration, Acute hypokalemia Discharge Plan Visit Data Chief Complaint: Diarrhea Stated Complaint: CHILLS, WEAKNESS, FATIGUE ED Provider: Bipin Caruso Discharge Problem: C. difficile colitis, Acute dehydration, Acute hypokalemia Patient Disposition: Being Evaluated by Hospitalist Forms Stand Alone Forms: My [facility] Prescriptions Prescriptions: No Action multivitamin Tablet 1 tab PO WK RF: 0 cyanocobalamin (vitamin B-12) [Vitamin B-12] 1,000 mcg Tablet 1,000 mcg PO WK RF: 0 aspirin [Aspirin Low Dose] 81 mg Tablet,Delayed Release (Dr/Ec) 81 mg PO DAILY RF: 0 ascorbic acid (vitamin C) [Vitamin C] 500 mg Tablet 500 mg PO DAILY RF: 0 lisinopril 10 mg Tablet 15 mg PO HS RF: 0 cholecalciferol (vitamin D3) [Vitamin D3] 25 mcg (1,000 unit) Tablet 25 mcg PO DAILY RF: 0 PreserVision AREDS 14,320-226-200 [id number] Capsule 1 cap PO DAILY RF: 0 [id number]-lgp-nsk-[id number]-ast [krill oil] 1,072-157-88-80 mg Capsule 2 cap PO DAILY PRN (Reason: eats no fish that day) RF: 0 terazosin 2 cap PO HS RF: 0 ibuprofen 200 mg Tablet 400 mg PO TID PRN (Reason: Pain) Qty: 0 RF: 0 famotidine 20 mg Tablet 20 mg PO QAM Qty: 30 RF: 0 prednisone 10 mg tablet 40 mg PO DAILY Qty: 30 RF: 0 Referrals Referrals: PCP,NO [Primary Care Provider] -
[2021-06-30] MEDS: SODIUM CHLORIDE 0.9% 500 ML IV SCH (20:44)
[2021-06-30 20:45] LABS: Basophils # (auto) 0.02 K/uL (0-0.2); Basophils % (auto) 0.1 %; Eosinophils # (auto) 0.05 K/uL (0-0.5); Eosinophils % (auto) 0.3 %; Hematocrit (blood only) 37.9 % (42-52); Hemoglobin 12.4 g/dL (14.0-18.0); Immature Granulocytes # (auto) 0.05 K/uL (0.00-0.02); Immature Granulocytes % (auto) 0.3 %; Lymphocytes # (auto) 2.78 K/uL (1.2-3.4); Lymphocytes % (auto) 17.8 %; Mean Corpuscular Hemoglobin 27.8 pg (25-34); Mean Corpuscular Hgb Conc 32.7 g/dL (32-36); Monocytes % (auto) 4.5 %; Platelet Count 679 K/uL (130-400); RDW Coefficient of Variation 14.4 % (11.5-14.5); RDW Standard Deviation 45.1 fL (36.4-46.3); Red Blood Count 4.46 M/uL (4.7-6.1)
[2021-06-30 20:48] LABS: Appearance Urine Clear (Clear); Bacteria Urine Automated Negative (Negative); Bilirubin Urine Negative (Negative); Blood Urine Trace (Negative); Color Urine Yellow; Epithelial Cell Urine Auto >30 /lpf (0-5); Glucose Urine UA Negative (Negative); Ketones Urine Negative (Negative); Leukocyte Esterase Urine Trace (Negative); Nitrite Urine Negative (Negative); Protein Urine 1+ (Negative); RBC Urine Automated 0-4 /hpf (0-4); Specific Gravity Urine 1.013 (1.000-1.030); Urobilinogen Urine Negative (Negative)
[2021-06-30 21:03] LABS: Alanine Aminotransferase 16 U/L (12-78); Albumin Level 3.1 gm/dl (3.4-5.0); Aspartate Aminotransferase 8 U/L (15-37); BUN Creatinine Ratio 13.6 (10-20); Blood Urea Nitrogen 14 mg/dl (7-18); Calcium 10.1 mg/dl (8.5-10.1); Carbon Dioxide 25 mmol/L (21-32); Chloride 98 mmol/L (98-107); Est GFR (African American) 81.4 ml/min; Est GFR (Non-African American) 70.3 ml/min; Glucose 105 mg/dl (70-99); Lipase 64 U/L (73-393); Potassium 2.9 mmol/L (3.5-5.1); Sodium 134 mmol/L (136-145)
[2021-06-30 21:08] LABS: Albumin Globulin Ratio 0.6 (0.9-2); Alkaline Phosphatase 63 U/L (45-117); Bilirubin,Total 0.5 mg/dl (0.2-1); Total Protein 8.1 gm/dl (6.4-8.2); Troponin I < 0.015 ng/ml (0-0.045)
[2021-06-30 21:44] LABS: Calcium Oxalate Crystals Urine Present (None Prsent)
[2021-07-01 00:30] LABS: Cdiff Antigen Uninterpretable; Cdiff Toxin A+B ToxinUninterpretable (Negative)
[2021-07-01] MEDS ORDERED: VANCOMYCIN HCL 125 MG/2.5ML SOLN PO STA (00:35)
[2021-07-01] MEDS ORDERED: POTASSIUM CHLORIDE / WTR 10 MEQ/100 ML PLCT IV ONE (00:35)
[2021-07-01] MEDS ORDERED: RASPBERRY SYRUP 5 ML UDP PO ONE (00:45)
[2021-07-01] MEDS: SODIUM CHLORIDE 0.9% 500 ML IV SCH ×2 (01:48→06:17)
--- NOTE | 2021-07-01 02:20 | History & Physical Report ---
Date of Service July 01, 2021 Assessment & Plan (1) Diarrhea: Plan: Mr. Candelaria is a 70 yo gentleman who came in for evaluation of watery diarrhea and shaking chills. - CT showing evidence of colitis - WBC elevated to 15 - SIRS criteria not met, patient not septic - suspect etiology of diarrhea is likely infectious: viral vs. bacterial - Cdiff gene positive, toxin un-interpretable. Repeat testing ordered. Risk factors include recent hospital stay and antibiotic use. If repeat testing returns positive: with it being patient's first lifetime cdiff infection and WBC > 15, recommend starting oral fidaxomicin rather than vancomycin, as this would classify as severe disease. It is also plausible that WBC is artificially elevated due to hemoconcentration (given increase in Hgb and platelets compared to last visit). - stool culture pending - trend CBC (2) Acute hypokalemia: Plan: - K level 2.9 on admission - EKG without evidence of ST segment depressions or T wave inversions - Mag level ordered - NSS with KCL ordered - recheck BMP in aM (3) Polyarthritis: Plan: - left foot (see previous admission documentation for additional details) - improving with oral pred taper - consideration was given to continuing vs. holding the prednisone on admission (risk of immunosuppression in the setting of possible active gut infection, and increased risk of bowel perforation) - ultimately decided to continue taper (4) Thrombocytosis: Plan: - platelets elevated to 679K/uL - may be secondary to hemoconcentration (due to associated elevation in WBC, Hgb up 3 pts from 5 days ago) vs. reactive to infection (colitis) vs. non - infectious inflammatory (polyarthritis of left foot) - trend CBC (5) BPH (benign prostatic hyperplasia): Plan: - continue home dose terazosin (6) HTN (hypertension): Plan: - continue home dose lisinopril DVT ppx: Lovenox Diet: NPO, advance as tolerated Dispo: Med/tele. PT/OT ordered. Code: Full Code, I discussed with patient History of Present Illness Primary Care Provider: NO PCP Mr. Candelaria is a 70 yo gentleman who came to the ED for evaluation of watery diarrhea of two days duration. Of note, the majority of his medical care takes place at the [facility]. However, he was recently admitted to [facility] on 06/21/21 to 06/26/21 for evaluation of left foot pain. Initially, he was thought to have gout, however his uric acid levels were low-normal. He was empirically started on Iv vancomycin and zosyn due to concerns for possible cellulitis, as an ankle MRI showed evidence of soft tissue edema. Antibiotics were later stopped. Orthopedics was consulted, who found no tapable fluid collection. His case was apparently discussed with rheumatology, who felt as though he was likely suffering from a polyarticular arthritis. He was sent out on a oral prednisone taper. He says the left foot has felt better since starting the steroid. He thought he had an appointment with Rheumatology at the [facility] on 06/28/21, however this was a misunderstanding. He is now scheduled to see them on 10/10/21. A rheumatoid factor was drawn during previous hospital stay - however it has subsequently resulted negative. He reports many episodes of watery diarrhea that began 1 day ago. No blood in the diarrhea. He did have nausea and dry heaves, although did not bring anything up. He reports shaking chills, although he never took his temperature. He denies any previous infections of cdiff. In the ED, he was afebrile with normal HR and BP. Breathing well on room air. His WBC was elevated to 15 with neutrophil predom. His Hgb was 12.4, up from 9.2 during last admission. Platelets elevated to 679 K/UL. His Na was 134, K low at 2.9. Normal kidney and liver function. Trop undetectable. UA not concerning for infection. Cdiff gene +, toxin unable to be determined. Covid 19 neg. Stool culture pending. EKG showing NSR, RBBB (old). XR of chest and abdomen appeared WNL, official read pending. Cat scan of abdomen and pelvis showing mild circumferential wall thickening of distal transverse and descending colon and cecum, possibly due to colitis. He was given a dose of oral vancomycin, zofran and IVF with KCl. Allergies Allergy/AdvReac Type Severity Reaction Status Date / Time Penicillins AdvReac Severe pain Verified 06/30/21 22:06 Home Medications Medication Instructions Recorded Confirmed Type ascorbic acid (vitamin C) 500 mg 500 mg PO DAILY 06/21/21 06/30/21 History tablet (Vitamin C) aspirin 81 mg tablet,delayed 81 mg PO DAILY 06/21/21 06/30/21 History release (Aspirin Low Dose) cholecalciferol (vitamin D3) 25 25 mcg PO DAILY 06/21/21 06/30/21 History mcg (1,000 unit) tablet (Vitamin D3) cyanocobalamin (vitamin B-12) 1,000 mcg PO WK 06/21/21 06/30/21 History 1,000 mcg tablet (Vitamin B-12) krill 1,000 mg-omega-3 170 mg-dha 2 cap PO DAILY PRN 06/21/21 06/30/21 History 50 mg-epa 80 [id number] capsule (krill oil) lisinopril 10 mg tablet 15 mg PO HS 06/21/21 06/30/21 History multivitamin 1 tab PO WK 06/21/21 06/30/21 History terazosin 2 cap PO HS 06/21/21 06/30/21 History vitamins A,C,P-yyaj-spawzc 14,320 1 cap PO DAILY 06/21/21 06/30/21 History unit-226 mg-200 unit capsule (PreserVision AREDS) famotidine 20 mg tablet 20 mg PO QAM #30 tab 06/26/21 06/30/21 Rx ibuprofen 200 mg tablet 400 mg PO TID PRN #0 tab 06/26/21 06/30/21 Rx prednisone 10 mg tablet 40 mg PO DAILY #30 tab 06/26/21 06/30/21 Rx Past Med/Surg History Medical History BPH (benign prostatic hyperplasia) HTN (hypertension) Kidney stones Surgical History Hx of tonsillectomy Social History Smoking Status: Former smoker Second Hand Exposure: No; Hx Alcohol Use: No Hx Substance Use: Yes Non-Prescribed Medications: Marijuana Last Used Substance Other:: occasionally Preferred Language: Icelandic Communication Ability: Effective Disaster Recovery Coordinator Required: No Beliefs That Will Affect Care: None Current Living Situation: Alone Current Living Situation Comment: byself and with his mother at [facility] taking care of her Feels Safe at Home: Yes Assistive Devices: Cane, Denture - Upper, Denture - Lower and Glasses Review of Systems Review of Systems: All systems reviewed & are unremarkable except as noted in HPI & below Physical Exam Constitutional: WD/WN, vitals as above cooperative; no acute distress Eyes: + anicteric sclerae ENMT: external ear and nose normal, oropharynx normal Neck: trachea midline Respiratory: normal respiratory effort, lungs clear to auscultation no cough Cardiovascular: RRR, no murmur, no edema Heart Sounds: normal S1 and normal S2 Gastrointestinal (Abdomen): normal bowel sounds, soft, nontender, no hepatosplenomegaly Musculoskeletal: Head/Neck/Chest: normocephalic and head atraumatic + swelling below medial malleolus of left foot. It is extremely sensitive to light touch (ie allodynia). peripheral pulses intact Skin: no rashes, warm and dry Neurologic: moves all extremities Psychiatric: A+Ox3, euthymic affect Results & Data Results & Data ([place]) Vital Signs (Past 12 Hours) Vital Signs Temp Pulse Pulse Resp BP BP Pulse Ox 07/01/21 01:00 88 18 179/88 H 98 07/01/21 00:09 96 H 18 197/90 H 98 06/30/21 22:29 87 18 186/86 H 96 06/30/21 20:58 89 18 183/86 H 98 06/30/21 20:37 95 H 18 99 06/30/21 20:02 144/74 H 06/30/21 18:23 36.9 C 91 H 20 164/83 H 98 Supervising Physician Co-Signing Physician Notes Patient seen and examined, chart reviewed, case discussed with Dr. Kirkland and I agree with her assessment and plan as documented above. Patient is a 70yo male recently admitted for ankle pain, ?gout ?infection. He was treated briefly with antibiotics and returns today with diarrhea, concern for c. diff. Gene+, Toxin unable to interpret on initial assessment On exam he is afebrile, hypertensive otherwise stable Skin - no rash HEENT - NC/AT, PERRL, MMM, neck supple Hear t- +S1/S2, regular, no m/r/g Lungs - CTA Abd - +BS, soft, NT/ND Ext - tenderness of left ankle at medial malleolus - tender with palpation of great toe bilaterally Labs and images reviewed CT with colitis Assessment/Plan- colitis, concern for c.diff vs other infectious source -Check stool culture -Repeat C. diff studies -Initiate treatment with Fidaxomicin -Remainder of plan as above Resident Activity Tracking Resident Involvement: Resident Care Provided Care Provided: Adult Hospital Medicine
[2021-07-01] MEDS ORDERED: ONDANSETRON INJ 2 MG/ML 2 ML VIAL IV PRN (06:23)
--- NOTE | 2021-07-01 07:00 | Billing Data ---
Date of Service July 01, 2021 Coding Level of Care Code INT OBSERVATION CARE 50M LVL 2
--- NOTE | 2021-07-01 07:09 | XRay Report ---
XR abdomen 2V w PA chest CLINICAL HISTORY: vomiting TECHNIQUE: 2 views of the abdomen were obtained. A single view of the chest was obtained. Comparison: None available at the time of this dictation. FINDINGS: No lines and tubes are seen. The cardiomediastinal silhouette is normal. The lungs are clear. Bluntin g of the left costophrenic angle likely represents prominent pericardial fat. No effusion or pneumoth orax. The osseous structures are grossly unremarkable. The bowel gas pattern is nonobstructive. A moderate amount of stool is noted within the large bowel. Incidentally noted is a right renal stone. IMPRESSION: 1. Nonobstructive bowel gas pattern. 2. Right nephrolithiasis. ACT 112: Negative or not required by law. Electronically signed by: Shin Oswald M.D. 07/01/2021 7:08 AM
[2021-07-01] MEDS: NSS + 20MEQ KCL 20 MEQ/1,000 ML BAG IV SCH ×2 (07:49→21:29)
[2021-07-01 08:42] LABS: Basophils # (auto) 0.02 K/uL (0-0.2); Basophils % (auto) 0.2 %; Eosinophils # (auto) 0.09 K/uL (0-0.5); Eosinophils % (auto) 0.7 %; Hematocrit (blood only) 31.5 % (42-52); Hemoglobin 10.2 g/dL (14.0-18.0); Immature Granulocytes # (auto) 0.05 K/uL (0.00-0.02); Immature Granulocytes % (auto) 0.4 %; Lymphocytes # (auto) 2.44 K/uL (1.2-3.4); Lymphocytes % (auto) 20.3 %; Mean Corpuscular Hemoglobin 27.5 pg (25-34); Mean Corpuscular Hgb Conc 32.4 g/dL (32-36); Mean Corpuscular Volume 84.9 fL (80-100); Mean Platelet Volume 8.5 fL (7.4-10.4); Monocytes # (auto) 0.71 K/uL (0.11-0.59); Monocytes % (auto) 5.9 %; Neutrophils % (auto) 72.5 %; Platelet Count 547 K/uL (130-400); RDW Coefficient of Variation 14.5 % (11.5-14.5); RDW Standard Deviation 45.2 fL (36.4-46.3); Red Blood Count 3.71 M/uL (4.7-6.1); White Blood Count 12.01 K/uL (4.8-10.8)
[2021-07-01] MEDS: ASPIRIN 81 MG ECTAB PO SCH (08:56)
[2021-07-01] MEDS: FAMOTIDINE 20 MG TAB PO SCH (08:56)
[2021-07-01] MEDS: predniSONE 20 MG TAB PO SCH (08:56)
[2021-07-01] MEDS: ENOXAPARIN INJ 40 MG/0.4 ML SYR SQ SCH (08:56)
--- NOTE | 2021-07-01 08:58 | CT Scan Report ---
CT abd pelvis wo con CLINICAL HISTORY: pain eval for divertic TECHNIQUE: Helical axial images of the abdomen and pelvis were obtained. Automated dose lowering tech niques and/or adjustment according to patient size were utilized for this exam. This exam was perfor med without intravenous contrast. COMPARISON: None available at the time of this dictation. FINDINGS: Lower chest: Cardiomegaly is partially visualized. Liver: Unremarkable. No focal lesions are seen. Gallbladder and biliary tree: No calcified gallstones. Normal caliber wall. No intra- or extrahepatic biliary ductal dilation. Pancreas: Fatty replacement of the pancreas is seen. Spleen: Unremarkable. Adrenals: Bilateral adrenal gland thickening is noted. Kidneys and ureters: Multiple renal cysts are partially visualized. Nonobstructive nephrolithiasis is noted on the right. Bladder: A right-sided bladder diverticulum is noted. Reproductive organs: Prostatomegaly is seen. Bowel: There is faint stranding and wall thickening about the descending colon. Tiny diverticula are noted. Lymph nodes Retroperitoneal: Subcentimeter maria antonia hepatis nodes are noted. Mesenteric: Unremarkable. Pelvic: Subcentimeter lymph nodes are noted. Peritoneum: Normal Vessels: Atherosclerotic calcifications are seen. Abdominal wall: Unremarkable. Bones: Degenerative changes in the visualized spine. IMPRESSION: Inflammatory wall thickening and pericolonic stranding in the descending colon likely represents dive rticulitis or other acute infectious/inflammatory process. ACT 112: Negative or not required by law. Electronically signed by: Shin Oswald M.D. 07/01/2021 8:56 AM
[2021-07-01 09:13] LABS: Cdiff Antigen Negative; Cdiff Toxin A+B Negative Cdiff Toxin (Negative)
[2021-07-01 09:27] LABS: BUN Creatinine Ratio 13.9 (10-20); Creatinine Clr Calc Pharmacy 98.2 ml/min; Est GFR (African American) 103.1 ml/min; Potassium 3.2 mmol/L (3.5-5.1)
--- NOTE | 2021-07-01 10:09 | Electrocardiogram Report ---
Test Reason : Blood Pressure : / mmHG Vent. Rate : 089 BPM Atrial Rate : 089 BPM P-R Int : 186 ms QRS Dur : 138 ms QT Int : 408 ms P-R-T Axes : 044 014 028 degrees QTc Int : 496 ms Normal sinus rhythm Possible Left atrial enlargement Right bundle branch block Abnormal ECG When compared with ECG of 21-JUN-2021 18:21, MA interval has decreased Confirmed by Mervin King ([id number]) on 07/01/2021 10:09:12 AM Referred By: REFERRED SELF Confirmed By:Mervin King
[2021-07-01] MEDS ORDERED: LABETALOL HCL 100 MG TAB PO PRN (11:51)
--- NOTE | 2021-07-01 15:31 | Hospitalist Progress Note ---
Date of Service July 01, 2021 Assessment & Plan (1) Diarrhea: Plan: Watery diarrhea -CT with evidence of colitis, WBC elevated to 15 on admission -C Diff gene positive but toxin negative, repeat testing with identical results -Potentially C Diff given abx therapy during past admission -Given PO vancomycin in ED -Stool Cx pending -DDx includes abx-associated diarrhea, C Diff, IBD, viral gastroenteritis -Spoke with GI for recommendations- Kelley BACH agreed C diff was most likely based on history and workup, recommended 10 day course of vancomycin PO -NSS IVF, advanced diet to clears today (2) Acute hypokalemia: Plan: - K level 2.9 on admission, 3.2 after repletion - EKG without evidence of ST segment depressions or T wave inversions - Will continue K repletion with KCl - Trend BMP (3) Polyarthritis: Plan: - Left foot (see previous admission documentation for additional details) - Pain controlled with oral prednisone 40 mg - Despite pt potentially having acute infection, will continue prednisone at present to control polyarthritis pain and inflammation (4) Thrombocytosis: Plan: - platelets elevated to 679K/uL - may be secondary to hemoconcentration (due to associated elevation in WBC, Hgb up 3 pts from 5 days ago) vs. reactive to infection (colitis) vs. non - infectious inflammatory (polyarthritis of left foot) - trend CBC (5) BPH (benign prostatic hyperplasia): Plan: - continue home dose terazosin (6) HTN (hypertension): Plan: - Home Lisinopril 15 mg changed to 20 mg DVT ppx: Lovenox 40 mg qAM Diet: NPO, advance as tolerated Dispo: Med/tele. PT/OT ordered. Code: Full Code, I discussed with patient Admission and Anticipated Discharge Date Admission Date: July 01, 2021 Supervising Physician Co-Signing Physician Notes Attending attestation Pt seen and examined in concert with Dr. Candelaria. In agreement with the documented findings as noted in the resident documentation with any exceptions or additions as noted here. Resting comfortably in bed with improved but persistent TTP of the abdomen and ongoing voluminous diarrhea. On examination, S1/S2 nl RRR no MCG. CTAB. Abd NT/ND BS+ve C. Diff colitis - negative toxin but +ve gene with colitis - start PO vancomycin, f/u stool Cx, continue IVF and advance diet as tolerated Acute hypokalemia - repleted, trend BMP Polyarthritis, rheumatologic - continue steroid taper HTN - increase lisinopril to 20mg and monitor Else see resident documentation as noted. Subjective Pt still reporting significant diarrhea but no longer reporting any abdominal cramps. Denies nausea, vomiting, fevers or any other acute complaints at this time. Review of Systems Review of Systems: +watery diarrhea Physical Exam Constitutional: WD/WN, vitals as above cooperative; no acute distress Eyes: + anicteric sclerae ENMT: Mildly dry mucous membranes Neck: trachea midline Respiratory: normal respiratory effort, lungs clear to auscultation no cough Cardiovascular: RRR, no murmur, no edema Heart Sounds: normal S1 and normal S2 Gastrointestinal (Abdomen): Abdomen: obese, soft, nontender, nondistended, normoactive bowel sounds Skin: no rashes, warm and dry Results & Data Results & Data ([facility]) Vital Signs (Past 12 Hours) Vital Signs Temp Pulse Pulse Resp BP BP Pulse Ox 07/01/21 14:20 83 16 07/01/21 14:10 96 H 19 07/01/21 14:00 99 H 19 07/01/21 13:50 88 16 07/01/21 13:40 77 26 H 07/01/21 13:30 83 13 07/01/21 13:20 77 16 07/01/21 13:10 82 24 07/01/21 13:00 80 26 H 184/88 H 07/01/21 12:50 98 H 15 07/01/21 12:40 83 24 07/01/21 12:30 87 19 07/01/21 12:20 81 13 07/01/21 12:10 84 23 07/01/21 12:00 82 18 07/01/21 11:50 84 18 07/01/21 11:40 78 20 07/01/21 11:30 94 H 13 192/112 H 07/01/21 11:20 86 22 97 07/01/21 11:14 82 16 183/100 H 96 07/01/21 11:10 89 14 98 07/01/21 11:05 88 21 183/100 H 99 07/01/21 10:43 101 H 16 191/83 H 98 07/01/21 10:40 93 H 15 96 07/01/21 10:30 98 H 16 95 07/01/21 10:20 93 H 16 94 07/01/21 10:10 88 19 94 07/01/21 10:00 88 15 93 07/01/21 09:50 82 19 90 07/01/21 09:40 83 19 98 07/01/21 09:32 86 18 187/98 H 100 07/01/21 09:30 89 13 99 07/01/21 09:29 97 H 23 99 07/01/21 09:00 98 H 28 H 07/01/21 08:50 83 15 96 07/01/21 08:40 84 20 94 07/01/21 08:30 89 14 169/101 H 98 07/01/21 08:20 87 12 89 L 07/01/21 08:10 91 H 15 93 07/01/21 08:00 85 19 182/89 H 95 07/01/21 07:50 88 19 98 07/01/21 07:47 36.7 C 92 H 16 195/91 H 98 07/01/21 07:46 94 H 31 H 100 07/01/21 07:30 81 14 07/01/21 07:20 93 H 13 07/01/21 07:10 90 13 07/01/21 07:00 88 07/01/21 06:50 90 07/01/21 06:40 88 15 07/01/21 06:30 82 12 07/01/21 06:20 85 14 07/01/21 06:12 101 H 21 07/01/21 06:00 98 H 97 07/01/21 05:50 90 85 L 07/01/21 05:40 87 95 07/01/21 05:30 85 17 95 07/01/21 05:27 86 18 171/85 H 95 07/01/21 05:20 83 13 93 07/01/21 05:10 90 15 95 07/01/21 05:00 86 22 96 Resident Activity Tracking Resident Involvement: Resident Care Provided Care Provided: Adult Hospital Medicine
[2021-07-01] MEDS ORDERED: POTASSIUM CHLORIDE 20 MEQ/15 ML UDC PO STA (16:32)
[2021-07-01] MEDS: RASPBERRY SYRUP 5 ML UDP PO SCH ×2 (20:55→23:45)
[2021-07-01] MEDS: VANCOMYCIN HCL 125 MG/2.5ML SOLN PO SCH ×2 (20:56→23:45)
[2021-07-01] MEDS ORDERED: lisinopril 5 MG TAB PO SCH (21:00)
[2021-07-01] MEDS ORDERED: TERAZOSIN HCL 1 MG CAP PO SCH (21:00)
[2021-07-01] MEDS ORDERED: lisinopril 20 MG TAB PO SCH (21:00)
[2021-07-01] MEDS: TERAZOSIN HCL 1 MG CAP PO SCH (22:03)
[2021-07-01] MEDS ORDERED: ACETAMINOPHEN 325 MG TAB PO PRN (23:30)
[2021-07-02] MEDS ORDERED: ALUMINUM/MAGNESIUM SUSP 30 ML UDC PO STA (01:23)
[2021-07-02] MEDS ORDERED: MELATONIN 3 MG TAB PO PRN (03:27)
[2021-07-02] MEDS: VANCOMYCIN HCL 125 MG/2.5ML SOLN PO SCH ×3 (06:32→18:24)
[2021-07-02] MEDS: RASPBERRY SYRUP 5 ML UDP PO SCH ×3 (06:32→18:24)
[2021-07-02 07:33] LABS: Hematocrit (blood only) 32.4 % (42-52); Hemoglobin 10.6 g/dL (14.0-18.0); Mean Corpuscular Hgb Conc 32.7 g/dL (32-36); Mean Corpuscular Volume 85.5 fL (80-100); Mean Platelet Volume 8.9 fL (7.4-10.4); Platelet Count 568 K/uL (130-400); RDW Coefficient of Variation 14.3 % (11.5-14.5); RDW Standard Deviation 44.6 fL (36.4-46.3); Red Blood Count 3.79 M/uL (4.7-6.1); White Blood Count 12.03 K/uL (4.8-10.8)
--- NOTE | 2021-07-02 07:42 | Hospitalist Progress Note ---
Date of Service July 02, 2021 Assessment & Plan (1) Diarrhea: Plan: -Currently day 2 of 10 of p.o. vancomycin -Patient tolerated advance to regular diet well -Continue to follow (2) Acute hypokalemia: Plan: -Repleted with KCl today -Will trend BMP in a.m. (3) Polyarthritis: Plan: - Left foot (see previous admission documentation for additional details) - Pain controlled with oral prednisone 40 mg - Despite pt potentially having acute infection, will continue prednisone at present to control polyarthritis pain and inflammation (4) Thrombocytosis: Plan: - platelets elevated to 679K/uL - may be secondary to hemoconcentration (due to associated elevation in WBC, Hgb up 3 pts from 5 days ago) vs. reactive to infection (colitis) vs. non - infectious inflammatory (polyarthritis of left foot) - trend CBC (5) BPH (benign prostatic hyperplasia): Plan: - continue home dose terazosin (6) HTN (hypertension): Plan: -Increase lisinopril to 40 mg from 20 mg -Continue to monitor vitals Admission and Anticipated Discharge Date Admission Date: July 01, 2021 Supervising Physician Co-Signing Physician Notes Attending attestation Pt seen and examined in concert with Dr. Case. In agreement with the documented findings as noted in the resident documentation with any exceptions or additions as noted here. Significant improvement in abdominal discomfort and frequency of BM On examination, S1/S2 nl RRR no MCG. CTAB. Abd NT/ND BS+ve C. Diff colitis - negative toxin but +ve gene with colitis - continue PO vancomycin, f/u stool Cx, continue IVF. Tolerating full diet well. Acute hypokalemia - repleted, trend BMP Polyarthritis, rheumatologic - continue steroid taper HTN - increase lisinopril to 40mg and monitor Else see resident documentation as noted. Fran Yee is a 70-year-old man who presented to the hospital with a complaint of watery diarrhea and shaking chills. Found to have C. difficile colitis. Currently on vancomycin (day 2 of 10). Today, reports feeling much better today. He does note he has had to take multiple trips to the bathroom to urinate. Otherwise, he has no complaints. Review of Systems Review of Systems: All systems reviewed & are unremarkable except as noted in HPI & below Physical Exam Constitutional: WD/WN, vitals as above Cardiovascular: RRR, no murmur, no edema Gastrointestinal (Abdomen): normal bowel sounds, soft, nontender, no hepatosplenomegaly Results & Data Results & Data ([facility]) Vital Signs (Past 12 Hours) Vital Signs Temp Pulse Pulse Resp BP Pulse Ox 07/02/21 07:34 82 07/01/21 23:29 36.5 C 85 18 155/67 H 97 07/01/21 23:26 85 Resident Activity Tracking Resident Involvement: Resident Care Provided Care Provided: Adult Hospital Medicine
[2021-07-02 08:01] LABS: Calcium 8.8 mg/dl (8.5-10.1); Creatinine Clr Calc Pharmacy 99.2 ml/min; Est GFR (African American) 103.1 ml/min; Potassium 3.1 mmol/L (3.5-5.1)
[2021-07-02] MEDS: ASPIRIN 81 MG ECTAB PO SCH (08:59)
[2021-07-02] MEDS: predniSONE 20 MG TAB PO SCH (08:59)
[2021-07-02] MEDS: FAMOTIDINE 20 MG TAB PO SCH (08:59)
[2021-07-02] MEDS: ENOXAPARIN INJ 40 MG/0.4 ML SYR SQ SCH (08:59)
[2021-07-02] MEDS: KETOROLAC TROMETHAMINE 10 MG TABLET PO PRN (09:00)
[2021-07-02] MEDS: POTASSIUM CHLORIDE / WTR 10 MEQ/100 ML PLCT IV SCH ×4 (12:34→16:44)
[2021-07-02] MEDS: TERAZOSIN HCL 1 MG CAP PO SCH (19:54)
[2021-07-02] MEDS: lisinopril 40 MG TAB PO SCH (19:55)
[2021-07-03] MEDS: RASPBERRY SYRUP 5 ML UDP PO SCH ×5 (00:18→23:24)
[2021-07-03] MEDS: VANCOMYCIN HCL 125 MG/2.5ML SOLN PO SCH ×5 (00:18→23:24)
[2021-07-03 06:35] LABS: Hematocrit (blood only) 30.6 % (42-52); Hemoglobin 9.7 g/dL (14.0-18.0); Mean Corpuscular Hemoglobin 27.3 pg (25-34); Mean Corpuscular Hgb Conc 31.7 g/dL (32-36); Mean Corpuscular Volume 86.2 fL (80-100); Mean Platelet Volume 8.3 fL (7.4-10.4); Platelet Count 465 K/uL (130-400); RDW Coefficient of Variation 14.4 % (11.5-14.5); RDW Standard Deviation 45.1 fL (36.4-46.3); Red Blood Count 3.55 M/uL (4.7-6.1); White Blood Count 13.05 K/uL (4.8-10.8)
[2021-07-03 07:04] LABS: Albumin Level 2.4 gm/dl (3.4-5.0); BUN Creatinine Ratio 13.2 (10-20); Calcium 8.4 mg/dl (8.5-10.1); Creatinine Clr Calc Pharmacy 93.3 ml/min; Est GFR (Non-African American) 92.3 ml/min; Potassium 3.1 mmol/L (3.5-5.1)
[2021-07-03 07:07] LABS: Albumin Globulin Ratio 0.6 (0.9-2); Bilirubin,Total 0.3 mg/dl (0.2-1); Globulin 3.9 gm/dl (2.5-4.0); Total Protein 6.3 gm/dl (6.4-8.2)
[2021-07-03] MEDS: ASPIRIN 81 MG ECTAB PO SCH (08:09)
[2021-07-03] MEDS: ENOXAPARIN INJ 40 MG/0.4 ML SYR SQ SCH (08:09)
[2021-07-03] MEDS: FAMOTIDINE 20 MG TAB PO SCH (08:10)
[2021-07-03] MEDS: predniSONE 20 MG TAB PO SCH (08:10)
--- NOTE | 2021-07-03 08:50 | Hospitalist Progress Note ---
Date of Service July 03, 2021 Assessment & Plan (1) Diarrhea: Plan: -Currently day 3 of 10 of p.o. vancomycin -Patient tolerated advance to regular diet well -Continue to follow (2) Acute hypokalemia: Plan: -Potassium at 3.1 today; repleted with KCl 40 mg IV -Trend BMP in the morning (3) Polyarthritis: Plan: -Left foot (see previous admission documentation for additional details) -Pain controlled with oral prednisone 40 mg -Despite pt potentially having acute infection, will continue prednisone at present to control polyarthritis pain and inflammation -MRI of the left ankle ordered stat to rule out osteomyelitis; review results (4) Thrombocytosis: Plan: -Platelets at 465K today, down from 670 5K yesterday -Trend CBC in the morning (5) BPH (benign prostatic hyperplasia): Plan: - continue home dose terazosin (6) HTN (hypertension): Plan: -Blood pressure still high despite increasing lisinopril dose to 40 mg -Added amlodipine 2.5 mg; will continue to monitor vitals Admission and Anticipated Discharge Date Admission Date: July 01, 2021 Supervising Physician Co-Signing Physician Notes Attending attestation Pt seen and examined in concert with Dr. Case. In agreement with the documented findings as noted in the resident documentation with any exceptions or additions as noted here. Continued slow improvement in frequency of bowel movement, no longer hourly (now q2 or so) and not as urgent. Still having ongoing pain of the left medial ankle which is stable from previous despite the prednisone. On examination, S1/S2 nl RRR no MCG. CTAB. Abd NT/ND BS+ve C. Diff colitis - negative toxin but +ve gene with colitis - continue PO vancomycin, f/u stool Cx, continue IVF. Tolerating full diet well. Acute hypokalemia - repleted, trend BMP Polyarthritis, rheumatologic - previous evaluation was concerned initially for early osteo of that ankle. Symptoms and appearance continue despite steroid therapy and pain is fairly superficial and not over a joint specifically. continue steroid taper for now, but repeat MRI ordered for further evaluation of ankle. HTN - lisinopril 40mg, add amlodipine 2.5mg. Monitor BP. Else see resident documentation as noted. Subjective Patient reports multiple bowel movements consisting of loose stools. He reports he has made at least 10 trips to the bathroom since last night. He also complains of moderate tenderness to palpation of his left medial malleolus and right big toe, at the distal joint. He denies any instance of fever but does note that he woke up in a cold sweat this morning. Review of Systems Review of Systems: All systems reviewed & are unremarkable except as noted in HPI & below Physical Exam Constitutional: WD/WN, vitals as above Respiratory: normal respiratory effort, lungs clear to auscultation Cardiovascular: RRR, no murmur, no edema Gastrointestinal (Abdomen): normal bowel sounds, soft, nontender, no hepatosplenomegaly Musculoskeletal: Warmth and moderate point tenderness at the medial malleolus of the left foot; warmth and moderate tenderness at the right big toe at the distal joint. Varicosities observed on the left foot, with some slight discoloration. Pedal pulses palpated distal to the area of tenderness. Results & Data Results & Data ([facility]) Vital Signs (Past 12 Hours) Vital Signs Temp Pulse Pulse Resp BP Pulse Ox 07/03/21 07:39 36.6 C 78 16 175/73 H 96 07/03/21 04:07 36.8 C 80 20 174/92 H 97 07/03/21 00:03 36.5 C 78 20 177/87 H 96 07/03/21 00:00 72 Resident Activity Tracking Resident Involvement: Resident Care Provided Care Provided: Adult [facility] Medicine
[2021-07-03] MEDS ORDERED: POTASSIUM CHLORIDE CRTAB 20 MEQ TABCR PO STA (11:13)
[2021-07-03] MEDS ORDERED: Nursing to Pharmacy Communication SCH (11:15)
[2021-07-03] MEDS: POTASSIUM CHLORIDE / WTR 10 MEQ/100 ML PLCT IV SCH ×2 (11:22→11:23)
[2021-07-03] MEDS: amLODIPine BESYLATE 5 MG TAB PO SCH (17:35)
[2021-07-03] MEDS: TERAZOSIN HCL 1 MG CAP PO SCH (20:16)
[2021-07-03] MEDS: lisinopril 40 MG TAB PO SCH (20:18)
[2021-07-04] MEDS: KETOROLAC TROMETHAMINE 10 MG TABLET PO PRN (03:43)
[2021-07-04] MEDS: VANCOMYCIN HCL 125 MG/2.5ML SOLN PO SCH ×3 (05:38→17:34)
[2021-07-04] MEDS: RASPBERRY SYRUP 5 ML UDP PO SCH ×3 (05:38→17:34)
[2021-07-04 07:31] LABS: Hematocrit (blood only) 31.9 % (42-52); Hemoglobin 10.4 g/dL (14.0-18.0); Mean Corpuscular Hemoglobin 27.9 pg (25-34); Mean Corpuscular Hgb Conc 32.6 g/dL (32-36); Mean Corpuscular Volume 85.5 fL (80-100); Mean Platelet Volume 8.7 fL (7.4-10.4); Platelet Count 465 K/uL (130-400); RDW Coefficient of Variation 14.4 % (11.5-14.5); RDW Standard Deviation 44.9 fL (36.4-46.3); Red Blood Count 3.73 M/uL (4.7-6.1); White Blood Count 14.75 K/uL (4.8-10.8)
[2021-07-04 07:48] LABS: Basophils # (auto) 0.03 K/uL (0-0.2); Basophils % (auto) 0.2 %; Eosinophils # (auto) 0.05 K/uL (0-0.5); Eosinophils % (auto) 0.3 %; Immature Granulocytes # (auto) 0.94 K/uL (0.00-0.02); Immature Granulocytes % (auto) 6.4 %; Lymphocytes # (auto) 3.53 K/uL (1.2-3.4); Lymphocytes % (auto) 23.9 %; Monocytes # (auto) 0.79 K/uL (0.11-0.59); Monocytes % (auto) 5.4 %; Neutrophils # (auto) 9.41 K/uL (1.4-6.5); Neutrophils % (auto) 63.8 %
[2021-07-04] MEDS: ENOXAPARIN INJ 40 MG/0.4 ML SYR SQ SCH (07:49)
[2021-07-04] MEDS: ASPIRIN 81 MG ECTAB PO SCH (07:49)
[2021-07-04] MEDS: FAMOTIDINE 20 MG TAB PO SCH (07:49)
[2021-07-04] MEDS: predniSONE 20 MG TAB PO SCH (07:50)
[2021-07-04] MEDS: amLODIPine BESYLATE 5 MG TAB PO SCH (07:51)
[2021-07-04 08:24] LABS: Albumin Level 2.6 gm/dl (3.4-5.0); BUN Creatinine Ratio 11.6 (10-20); Calcium 8.7 mg/dl (8.5-10.1); Creatinine Clr Calc Pharmacy 96.4 ml/min; Est GFR (African American) 102.6 ml/min; Est GFR (Non-African American) 88.5 ml/min; Potassium 3.1 mmol/L (3.5-5.1)
[2021-07-04 08:26] LABS: Albumin Globulin Ratio 0.6 (0.9-2); Bilirubin,Total 0.2 mg/dl (0.2-1); Globulin 4.1 gm/dl (2.5-4.0); Total Protein 6.7 gm/dl (6.4-8.2)
[2021-07-04] MEDS ORDERED: POTASSIUM CHLORIDE CRTAB 20 MEQ TABCR PO STA ×2 (08:54→14:32)
--- NOTE | 2021-07-04 11:22 | Magnetic Resonance Report ---
MR ankle LT wo con CLINICAL HISTORY: Swelling of the left ankle for 7 weeks. Follow-up suspected osteomyelitis. COMPARISON: 06/24/2021 TECHNIQUE: Multiplanar multisequence images of the left ankle were performed without contrast. FINDINGS: Osseous structures: Compared to the previous examination, there is again mild marrow edema present i nvolving the medial malleolus of the tibia with the findings are again suspicious for mild osteomyeli tis. However, there is no evidence for cortical destruction. Homogeneous marrow signal seen throughou t the remaining imaged bones of the ankle with no other sites of marrow edema or marrow placement. T here is no evidence for an acute or occult fracture. Joints: The tibiotalar joint is maintained. There is no evidence for joint effusion. No osteochondra l defects are seen at the talar dome. The subtalar joint is maintained. Tendons: The tibialis posterior tendon as well as the flexor digitorum longus and hallucis longus ten dons demonstrate anatomic signal characteristics. The peroneus longus and brevis tendons are within normal limits. There is no evidence for tendon tear or tendinopathy. The Achilles' tendon is within normal limits. Plantar fascia is within normal limits. Ligaments: The anterior and posterior tibiofibular and talofibular ligaments are intact. Deltoid comp darrin is within normal limits. The calcaneofibular ligament is also within normal limits. Soft tissues: Compared to previous examination, there is interval decrease in the amount of subcutane ous edema present. The findings are characteristic of improved cellulitis. No focal fluid collections are identified. IMPRESSION: 1. Compared to previous examination, there is again mild marrow edema present involving medial malleo kacie of the tibia, again suspicious for mild osteomyelitis. However, no cortical destruction is identi fied. 2. There has been interval improvement of previously identified cellulitis. ACT 112: Negative or not required by law. Electronically signed by: Irvin Arriola M.D. 07/04/2021 11:21 AM
--- NOTE | 2021-07-04 13:06 | Hospitalist Progress Note ---
Date of Service July 04, 2021 Assessment & Plan (1) Diarrhea: Plan: 1) Watery Diarrhea -improving, Cont. p.o. vancomycin (day 4) 2) Acute Hypokalemia -Potassium at 3.1 today; repleted with KCl 80mg PO total today -Trend BMP in the morning 3) Polyarthritis -Left foot (see previous admission documentation for additional details) -Despite patient potentially having acute infection, will continue prednisone at present to control polyarthritis pain and inflammation, cont. prednisone PO 40mg -MRI left ankle --> mild marrow edema present involving medial malleolus of the tibia, again suspicious for mild osteomyelitis. However, no cortical destruction is identified. Interval improvement of previously identified cellulitis; prior left ankle MRI done on 06/24 -Potential gout flare in right big toe -consult ortho for potential arthrocentesis of both left ankle and right big toe -if ortho does not perform arthrocentesis, will try to manage potential gout with colchicine as this seems more likely than osteomyelitis based on the presentation 4) Thrombocytosis -Platelets at 670k --> 465K --> 465k -Trend CBC in the morning 5) BPH -continue home terazosin 6) HTN -cont. lisinopril and amlodipine, monitor BP 7) Dysuria -UA shows trace leukocytes, possible infection, however, not likely. Also do not want to begin abx with ongoing C. Diff. Diet: Regular (2) Acute hypokalemia: (3) Polyarthritis: (4) Thrombocytosis: (5) BPH (benign prostatic hyperplasia): (6) HTN (hypertension): Admission and Anticipated Discharge Date Admission Date: July 04, 2021 Supervising Physician Co-Signing Physician Notes I personally examined the patient and verified all bowen points of history and exam, discussed case, and agree with decision making with Dr Andrews feeling a bit better, stools somewhat less frequent and more formed. ongoing L ankle and R great toe pain. some dysuria - although also relates chronic prostate issues vitals noted nad heent nc at mmm breathing unlabored no accessory muscles good effort presumed Cdiff diarrhea/colitis -tests as carrier, but clinical scenario fits with active infection - improving on PO vanco - conitnue ankle/toe pain/swelling - ?gout versus rheumatologic versus infectedwould hesitate to empirically put him on antibiotics given the C. difficile, will ask orthopedics if there might be enough fluid to get sampling for analysis, and if they are not able to then may consider an empiric trial of colchicine, pl us/minus rheumatology consult Dysuriafollow for now, urinalysis nonspecific, does have prostate issues that may be causing him trouble, much as above with the ankle and toe pain/swellingwould hesitate to put him on empiric antibiotics given that it would likely worsen the C. difficile situation otherwise as above Subjective Says his stools are becoming more firm and less frequent. Left ankle in compression stocking. Complains of of right big toe swelling and pain. Also complains of new onset dysuria. Review of Systems Review of Systems: All systems reviewed & are unremarkable except as noted in HPI & below Constitutional: no fever and no chills Respiratory: no cough and no dyspnea Cardiovascular: no chest pain Gastrointestinal: no abdominal pain Physical Exam Constitutional: WD/WN, vitals as above Eyes: PERRL, conjunctivae normal, anicteric sclerae ENMT: external ear and nose normal, oropharynx normal Respiratory: normal respiratory effort, lungs clear to auscultation Cardiovascular: RRR, no murmur, no edema Gastrointestinal (Abdomen): normal bowel sounds, soft, nontender, no hepatosplenomegaly Musculoskeletal: Left ankle: in compression stocking, when taken off no obvious edema. TTP over medial malleolus. Right foot: TTP over right big toe, nonerythematous, +edema. Results & Data Results & Data ([facility]) Vital Signs (Past 12 Hours) Vital Signs Temp Pulse Pulse Resp BP BP Pulse Ox 07/04/21 11:28 36.8 C 82 16 159/76 H 95 07/04/21 07:50 36.8 C 71 16 169/79 H 98 07/04/21 07:17 75 07/04/21 05:42 36.6 C 78 18 162/78 H 98 Resident Activity Tracking Resident Involvement: Resident Care Provided Care Provided: Adult Hospital Medicine
[2021-07-04 13:35] LABS: Appearance Urine Clear (Clear); Bacteria Urine Automated Negative (Negative); Bilirubin Urine Negative (Negative); Blood Urine Trace (Negative); Color Urine Yellow; Glucose Urine UA Trace (Negative); Ketones Urine Trace (Negative); Leukocyte Esterase Urine Trace (Negative); Nitrite Urine Negative (Negative); Protein Urine 1+ (Negative); RBC Urine Automated 0-4 /hpf (0-4); Specific Gravity Urine 1.018 (1.000-1.030); Urobilinogen Urine Negative (Negative)
--- NOTE | 2021-07-04 18:15 | Billing Data ---
Date of Service July 04, 2021 Coding Level of Care Code 80633 Subseq Hosp Care Lvl 3
--- NOTE | 2021-07-04 18:16 | Billing Data ---
Date of Service July 04, 2021 Coding Level of Care Code 98628 Subseq Hosp Care Lvl 3
[2021-07-04] MEDS: TERAZOSIN HCL 1 MG CAP PO SCH (20:54)
[2021-07-04] MEDS: lisinopril 40 MG TAB PO SCH (20:54)
--- NOTE | 2021-07-04 22:52 | Orthopedic Consultation ---
Date of Service July 04, 2021 Assessment & Plan (1) Left ankle swelling: (2) Arthritis of joint of toe: The left ankle and right great toe are clinically improved since initiating treatment. The reason for the pain and swelling is a little unclear. There is no left ankle effusion, so the process seems superficial along the medial malleolus. MRI signal in the medial malleolus is either contusion or small foci of associated osteomyelitis from her previous deep cellulitis. Improvement off of antibiotics makes this scenario unlikely. Do not recommend aspiration of the interphalangeal joint nor the metatarsophalangeal joint. I do not recommend attempted aspirating the left tibiotalar joint as there is no particular effusion or significant joint fluid on 2 separate MRIs in the past few weeks. Would recommend empiric treatment for inflammatory arthritis. Consider rheumatology consult History of Present Illness Reason for Consultation: Left ankle and right great toe pain and swelling, possible arthrocentesis Requesting Physician: . Attending Physician: Vitor Pickett DO 70-year-old male admitted in late May for several days with left ankle pain and swelling inhibiting ambulation, was readmitted on 06/30/2021 with severe diarrhea. He is being treated for C. difficile. His foot and ankle pain was treated by antibiotics for period of time before a being switched to prednisone for potential inflammatory condition. There was a question of needing to perform an arthrocentesis but MRI revealed no joint fluid. The patient reports that his left ankle and right toe swelling has improved by approximately 20% overall. He has less pain and has been able to return to ambulating. He is continued on oral prednisone. Repeat MRI was obtained. Patient denies any history of inflammatory arthritis nor gout. He states that the left medial ankle pain began with sudden punctate swelling or engorged vein that he bumped on a bed rail. He had expanding swelling and ecchymosis after that, which developed into some erythema. This prompted treatment for cellulitis. He reports no regression in his symptoms since needing to be readmitted. Allergies Allergy/AdvReac Type Severity Reaction Status Date / Time Penicillins AdvReac Severe pain Verified 06/30/21 22:06 Home Medications Medication Instructions Recorded Confirmed Type ascorbic acid (vitamin C) 500 mg 500 mg PO DAILY 06/21/21 06/30/21 History tablet (Vitamin C) aspirin 81 mg tablet,delayed 81 mg PO DAILY 06/21/21 06/30/21 History release (Aspirin Low Dose) cholecalciferol (vitamin D3) 25 25 mcg PO DAILY 06/21/21 06/30/21 History mcg (1,000 unit) tablet (Vitamin D3) cyanocobalamin (vitamin B-12) 1,000 mcg PO WK 06/21/21 06/30/21 History 1,000 mcg tablet (Vitamin B-12) krill 1,000 mg-omega-3 170 mg-dha 2 cap PO DAILY PRN 06/21/21 06/30/21 History 50 mg-epa 80 rz-trdgai-cpuiz capsule (krill oil) lisinopril 10 mg tablet 15 mg PO HS 06/21/21 06/30/21 History multivitamin 1 tab PO WK 06/21/21 06/30/21 History terazosin 2 cap PO HS 06/21/21 06/30/21 History vitamins A,C,N-apde-khaimw 14,320 1 cap PO DAILY 06/21/21 06/30/21 History unit-226 mg-200 unit capsule (PreserVision AREDS) famotidine 20 mg tablet 20 mg PO QAM #30 tab 06/26/21 06/30/21 Rx ibuprofen 200 mg tablet 400 mg PO TID PRN #0 tab 06/26/21 06/30/21 Rx prednisone 10 mg tablet 40 mg PO DAILY #30 tab 06/26/21 06/30/21 Rx Past Med/Surg History Medical History BPH (benign prostatic hyperplasia) HTN (hypertension) Kidney stones Surgical History Hx of tonsillectomy Social History Smoking Status: Former smoker Second Hand Exposure: No; Do You Dip or Chew Tobacco: No; Tobacco Cessation Education Requested by Patient: No Hx Alcohol Use: No Hx Substance Use: Yes Non-Prescribed Medications: Marijuana Last Used Substance Other:: occasionally Preferred Language: Bots[place] Communication Ability: Effective Caseworker Required: No Beliefs That Will Affect Care: None marital status: Current Living Situation: Alone Current Living Situation Comment: byself and with his mother at [facility] taking care of her How many Children do You have: 2 Other Information That Helps Us Care for You: No Feels Safe at Home: Yes Safety Concerns: Feels Safe At This Time Assistive Devices: Cane Review of Systems All systems reviewed & are unremarkable except as noted in HPI & below. Physical Exam Left foot/ankle: There is diffuse but apparently resolving edema along the medial mall, posterior tibial tendon course and extending down towards the medial aspect of the plantar foot. There is some epidermal lysis and peeling on his dorsal foot has evidence of resolved edema. He has full motion of his digits. He has full tibiotalar motion at reasonably comfortable. He has good inversion eversion with minimal pain. He is focally tender over the medial malleolus and less over the posterior tibial tendons. There is focal pain at the deltoid insertion. The lateral malleolus and joint line are nontender. He is nontender along the subtalar joint and posterior joint line of the ankle just anterior to the Achilles. There is no palpable effusion in the tibiotalar joint. There is no erythema. Right great toe: There is diffuse edema in the right great toe. There is a slight resolving ecchymotic appearance. He is focally tender at the interphalangeal joint of the great toe and less tender at the metatarsal phalangeal joint. There trace erythema. Constitutional well developed and well nourished; no acute distress and not intoxicated appearing ENMT external ear and nose normal, oropharynx normal Respiratory normal respiratory effort; no respiratory distress Cardiovascular Extremities: normal capillary refill; no edema Skin no rashes, warm and dry Psychiatric A+Ox3, euthymic affect Results & Data Results & Data Laboratory Results H & H 06/30/21 07/01/21 07/02/21 Range/Units 19:54 08:22 06:44 Hgb 12.4 L 10.2 L 10.6 L (14.0-18.0) g/dL Hct 37.9 L 31.5 L 32.4 L (42-52) % 07/03/21 07/04/21 Range/Units 06:25 07:07 Hgb 9.7 L 10.4 L (14.0-18.0) g/dL Hct 30.6 L 31.9 L (42-52) % Laboratory Tests 07/02/21 07/03/21 07/04/21 06:44 06:25 07:07 WBC 12.03 H 13.05 H 14.75 H Microbiology 06/30/21 22:10 Stool Escherichia coli Shiga Toxins Test - Final 06/30/21 22:10 Stool Stool Culture - Final No Salmonella isolated, No Shigella isolated, No Campylobacter jejuni isolated. . Diagnostic Findings Radiographs of the foot reveal mild degenerative change at the interphalangeal joint. He is reasonably well preserved metatarsophalangeal joint space. There is no evidence of acute findings nor erosions. Left ankle x-rays demonstrate preserved joint space. No obvious erosions no acute findings. The 2 MRIs in the ankle reveal diffuse soft tissue edema particularly along the medial malleolus that is have resolved from the original MRI until 07/03 study. On both MRIs, there is no evidence of joint effusion. There is mild fluid in the subtalar joint but does not appear to be pathologic. There is an area of the medial malleolus with increased T2 signal consistent with either bone contusion from his original bed post injury or a foci of osteomyelitis without abscess or erosion. PG Care Time/CCT Total # of Minutes Spent Total Time Spent with Patient: Total time spent is greater than 50% in coordination of care (as documented) at patient's floor/unit and/or counseling patient: Coding Level of Care Code 00427 Inpt Consult Level 3 Diagnoses Left ankle swelling M25.472 Arthritis of joint of toe M19.079
[2021-07-05] MEDS: RASPBERRY SYRUP 5 ML UDP PO SCH ×5 (00:01→23:38)
[2021-07-05] MEDS: VANCOMYCIN HCL 125 MG/2.5ML SOLN PO SCH ×5 (00:01→23:38)
[2021-07-05] MEDS: KETOROLAC TROMETHAMINE 10 MG TABLET PO PRN ×2 (03:27→22:16)
[2021-07-05] MEDS: amLODIPine BESYLATE 5 MG TAB PO SCH (07:48)
[2021-07-05] MEDS: predniSONE 20 MG TAB PO SCH (07:49)
[2021-07-05] MEDS: ASPIRIN 81 MG ECTAB PO SCH (07:49)
[2021-07-05] MEDS: FAMOTIDINE 20 MG TAB PO SCH (07:49)
[2021-07-05] MEDS: ENOXAPARIN INJ 40 MG/0.4 ML SYR SQ SCH (07:49)
[2021-07-05 08:03] LABS: Basophils # (auto) 0.03 K/uL (0-0.2); Basophils % (auto) 0.2 %; Eosinophils # (auto) 0.02 K/uL (0-0.5); Eosinophils % (auto) 0.1 %; Hematocrit (blood only) 32.8 % (42-52); Hemoglobin 10.5 g/dL (14.0-18.0); Immature Granulocytes # (auto) 0.67 K/uL (0.00-0.02); Immature Granulocytes % (auto) 4.4 %; Lymphocytes # (auto) 2.99 K/uL (1.2-3.4); Lymphocytes % (auto) 19.9 %; Mean Corpuscular Hemoglobin 27.6 pg (25-34); Mean Corpuscular Volume 86.1 fL (80-100); Mean Platelet Volume 8.6 fL (7.4-10.4); Monocytes # (auto) 0.83 K/uL (0.11-0.59); Monocytes % (auto) 5.5 %; Neutrophils # (auto) 10.52 K/uL (1.4-6.5); Neutrophils % (auto) 69.9 %; Platelet Count 432 K/uL (130-400); RDW Coefficient of Variation 14.8 % (11.5-14.5); RDW Standard Deviation 45.9 fL (36.4-46.3); Red Blood Count 3.81 M/uL (4.7-6.1); White Blood Count 15.06 K/uL (4.8-10.8)
[2021-07-05 08:33] LABS: Albumin Level 2.6 gm/dl (3.4-5.0); BUN Creatinine Ratio 14.3 (10-20); Est GFR (African American) 102.4 ml/min; Est GFR (Non-African American) 88.3 ml/min; Potassium 3.5 mmol/L (3.5-5.1)
[2021-07-05 08:36] LABS: Albumin Globulin Ratio 0.7 (0.9-2); Bilirubin,Total 0.3 mg/dl (0.2-1); Total Protein 6.6 gm/dl (6.4-8.2)
--- NOTE | 2021-07-05 11:07 | Hospitalist Progress Note ---
Date of Service July 05, 2021 Assessment & Plan (1) Diarrhea: Plan: 1) Watery Diarrhea -suspected C. diff, improving, Cont. p.o. vancomycin (day 5) 2) Acute Hypokalemia -Potassium at 3.1 --> 3.5 today -Trend BMP in the morning 3) Polyarthritis -Left foot (see previous admission documentation for additional details) -Despite patient potentially having acute infection, will continue prednisone at present to control polyarthritis pain and inflammation, cont. prednisone PO 40mg -MRI left ankle --> mild marrow edema present involving medial malleolus of the tibia, again suspicious for mild osteomyelitis. However, no cortical destruction is identified. Interval improvement of previously identified cellulitis; prior left ankle MRI done on 06/24 -Potential gout flare in right big toe -consult ortho for potential arthrocentesis of both left ankle and right big toe --> ortho did not perform arthrocentesis due to insufficient fluid in joints --> will try to manage potential gout with colchicine as this seems more likely than osteomyelitis based on the presentation 4) Dysuria -UA shows trace leukocytes, possible infection, however, not likely. Refraining from beginning abx with ongoing C. Diff. 5) Thrombocytosis -Platelets at 670k --> 465K --> 465k --> 432k -Trend CBC in the morning 6) BPH -continue home terazosin 7) HTN -cont. lisinopril and amlodipine, monitor BP Diet: Regular (2) Acute hypokalemia: (3) Polyarthritis: (4) Thrombocytosis: (5) BPH (benign prostatic hyperplasia): (6) HTN (hypertension): Admission and Anticipated Discharge Date Admission Date: July 04, 2021 Supervising Physician Co-Signing Physician Notes I personally examined the patient and verified all bowen points of history and exam, discussed case, and agree with decision making with Dr Andrews Diarrhea improved. Overall about the same otherwise. Foot and ankle about the same. vitals noted nad heent nc at mmm breathing unlabored no accessory muscles good effort. Ongoing ankle tenderness. presumed Cdiff diarrhea/colitis -tests as carrier, but clinical scenario fits with active infection - improving on PO vanco -continue this, showing improvement. ankle/toe pain/swelling - ?gout versus rheumatologic versus infecteddefinitely hesitant to empirically start antibiotics given the ongoing C. difficile infection. Unable to aspirate joint fluid. Working on outpatient rheumatology versus trying to facilitate inpatient consults. Given that gout is on the dif ferentialwe will give trial to empiric colchicine given that the risk of a one- time treatment is fairly low. Dysuriafollow for now, urinalysis nonspecific, does have prostate issues that may be causing him trouble, much as above with the ankle and toe pain/swellingwould hesitate to put him on empiric antibiotics given that it would likely worsen the C. difficile situation otherwise as above Subjective Says his stools are similar to yesterday, a mix of firm and watery but improved from admission. Left ankle in compression stocking. Left ankle and right big toe still in pain but less so than last night. Still complaining of dysuria especially last night which required an ice pack. Review of Systems Constitutional: no fever and no chills Respiratory: no cough and no dyspnea Cardiovascular: no chest pain Gastrointestinal: no abdominal pain Physical Exam Constitutional: WD/WN, vitals as above Eyes: PERRL, conjunctivae normal, anicteric sclerae ENMT: external ear and nose normal, oropharynx normal Respiratory: normal respiratory effort, lungs clear to auscultation Cardiovascular: RRR, no murmur, no edema Gastrointestinal (Abdomen): normal bowel sounds, soft, nontender, no hepatosplenomegaly Musculoskeletal: Left ankle: TTP lateral and medial malleolus, no skin changes without erythema, minimal edema. Right big toe: edematous without erythema, TTP over MCP and PIP. Results & Data Results & Data ([facility]) Vital Signs (Past 12 Hours) Vital Signs Temp Pulse Pulse Resp BP BP Pulse Ox 07/05/21 07:54 36.5 C 81 20 155/85 H 97 07/05/21 04:00 36.5 C 75 18 167/83 H 97 07/05/21 00:47 81 07/05/21 00:17 36.4 C L 82 14 177/89 H 96 Resident Activity Tracking Resident Involvement: Resident Care Provided Care Provided: Adult Hospital Medicine
[2021-07-05] MEDS ORDERED: COLCHICINE 0.6 MG TAB PO ONE ×2 (15:22→16:30)
[2021-07-05] MEDS: TERAZOSIN HCL 1 MG CAP PO SCH (20:17)
[2021-07-05] MEDS: lisinopril 40 MG TAB PO SCH (20:18)
[2021-07-06] MEDS: RASPBERRY SYRUP 5 ML UDP PO SCH ×4 (05:34→23:48)
[2021-07-06] MEDS: VANCOMYCIN HCL 125 MG/2.5ML SOLN PO SCH ×4 (05:34→23:48)
[2021-07-06 07:45] LABS: Basophils # (auto) 0.01 K/uL (0-0.2); Basophils % (auto) 0.1 %; Eosinophils # (auto) 0.03 K/uL (0-0.5); Eosinophils % (auto) 0.2 %; Hematocrit (blood only) 30.6 % (42-52); Hemoglobin 10.1 g/dL (14.0-18.0); Immature Granulocytes # (auto) 0.55 K/uL (0.00-0.02); Immature Granulocytes % (auto) 3.6 %; Lymphocytes # (auto) 3.01 K/uL (1.2-3.4); Lymphocytes % (auto) 19.6 %; Mean Corpuscular Hemoglobin 27.7 pg (25-34); Mean Corpuscular Volume 83.8 fL (80-100); Mean Platelet Volume 8.5 fL (7.4-10.4); Monocytes # (auto) 0.94 K/uL (0.11-0.59); Monocytes % (auto) 6.1 %; Neutrophils # (auto) 10.78 K/uL (1.4-6.5); Neutrophils % (auto) 70.4 %; Platelet Count 406 K/uL (130-400); RDW Coefficient of Variation 14.9 % (11.5-14.5); RDW Standard Deviation 45.9 fL (36.4-46.3); Red Blood Count 3.65 M/uL (4.7-6.1); White Blood Count 15.32 K/uL (4.8-10.8)
[2021-07-06 08:11] LABS: BUN Creatinine Ratio 16.6 (10-20); Creatinine Clr Calc Pharmacy 97.3 ml/min; Est GFR (Non-African American) 89.7 ml/min; Potassium 3.3 mmol/L (3.5-5.1)
[2021-07-06] MEDS: amLODIPine BESYLATE 5 MG TAB PO SCH (09:55)
[2021-07-06] MEDS: FAMOTIDINE 20 MG TAB PO SCH (09:56)
[2021-07-06] MEDS: ENOXAPARIN INJ 40 MG/0.4 ML SYR SQ SCH (09:56)
[2021-07-06] MEDS: predniSONE 20 MG TAB PO SCH (09:56)
[2021-07-06] MEDS: ASPIRIN 81 MG ECTAB PO SCH (09:56)
[2021-07-06] MEDS: KETOROLAC TROMETHAMINE 10 MG TABLET PO PRN (13:17)
--- NOTE | 2021-07-06 16:41 | Rheumatology Consultation ---
Rheumatology Consultation DOS July 06, [address] Pickett Reason for Consultation Inflammatory arthritis Assessment & Plan (1) Arthritis of joint of toe: Given his overall presentation and family history, he likely has psoriatic arthritis. Had some initial response to prednisone but has ongoing joint pain and swelling. May find more benefit from methylprednisolone instead (2) Left ankle swelling: Due to an inflammatory arthritis --please switch him to Medrol. Ok to give 40 mg IV medrol x 1 today then tomorrow switch to PO medrol 32 mg (two 16 mg tabs) daily for 1 week then decrease to 24 mg daily (1.5 tabs) until his appointment scheduled for 07/20/21 at 3:20pm with me in [place] --please check anti CCP and HLA-B27 antibody status before discharge as he does not have a primary care physician (3) C. difficile colitis: -complete treatment per primary team History of Present Illness Attending Physician: Vitor Pickett, DO History of Present Illness 71 year old gentleman with past medical history of ddd of cervical spine who reports that he was in his usual state of good health with no major joint issues until 7 weeks prior to this current admission when he mistakenly bumped his left ankle on the side of a piece of furniture and ruptured a "blood vessel". The ankle became painful and swollen as he continued to walk on it. Six to 7 days later, he developed acute pain and swelling of his right great toe without injury. Left ankle pain and swelling spread to involve his forefoot. He went to the [facility] in [place] for this issue but reports that the physician he saw did not address his foot/ankle but only adjusted his blood pressure medication. 10 days later he went back to the [facility] for his ankle pain, waited 3 hours and was not seen. He returned 2 days later commenting that he had to walk far to get from the parking lot to the clinic. He waited to be checked in and by the time he was checked in, he was told his appointment was canceled because he was 17 minutes late. He then transferred to the [facility] in [place] and was seen by Dr. Quiles. He was prescribed an NSAID on 06/07/21 and advised rest, ice, and elevation. He did not receive the prescription for the NSAID until 06/25/21. He was hospitalized here at [facility] from 06/21/21 after presenting with his left ankle/ foot pain/swelling and right great toe pain with swelling. He was initially given antibiotics for concern for cellulitis. Review of records indicate that his primary team has spoken with rheumatology during this admission when he did not respond to antibiotics. His uric acid was normal and imaging of his knees and wrists looking for chondrocalcinosis for possible CPPD arthritis were unrevealing. He was discharged on prednisone taper starting at 40 mg daily with the plan that he had an appointment with rheumatology on 06/28/21. He presented to the ED for this current admission on 07/01/21 with chief complaint of diarrhea and is currently being treated for c.diff. He denies previous history of peripheral joint pain or swelling. No personal history of inflammatory arthritis, psoriasis, or inflammatory bowel disease. Interestingly, he has two daughter who have psoriasis and his youngest daughter has severe psoriasis affecting most of her body. She had an allergic reaction to Humira. Allergies Allergy/AdvReac Type Severity Reaction Status Date / Time Penicillins AdvReac Severe pain Verified 06/30/21 22:06 Home Medications Medication Instructions Recorded Confirmed Type ascorbic acid (vitamin C) 500 mg 500 mg PO DAILY 06/21/21 06/30/21 History tablet (Vitamin C) aspirin 81 mg tablet,delayed 81 mg PO DAILY 06/21/21 06/30/21 History release (Aspirin Low Dose) cholecalciferol (vitamin D3) 25 25 mcg PO DAILY 06/21/21 06/30/21 History mcg (1,000 unit) tablet (Vitamin D3) cyanocobalamin (vitamin B-12) 1,000 mcg PO WK 06/21/21 06/30/21 History 1,000 mcg tablet (Vitamin B-12) krill 1,000 mg-omega-3 170 mg-dha 2 cap PO DAILY PRN 06/21/21 06/30/21 History 50 mg-epa 80 ty-gepjpv-jxyft capsule (krill oil) lisinopril 10 mg tablet 15 mg PO HS 06/21/21 06/30/21 History multivitamin 1 tab PO WK 06/21/21 06/30/21 History terazosin 2 cap PO HS 06/21/21 06/30/21 History vitamins A,C,M-hfek-gxcnpk 14,320 1 cap PO DAILY 06/21/21 06/30/21 History unit-226 mg-200 unit capsule (PreserVision AREDS) famotidine 20 mg tablet 20 mg PO QAM #30 tab 06/26/21 06/30/21 Rx ibuprofen 200 mg tablet 400 mg PO TID PRN #0 tab 06/26/21 06/30/21 Rx prednisone 10 mg tablet 40 mg PO DAILY #30 tab 06/26/21 06/30/21 Rx Patient History Medical History BPH (benign prostatic hyperplasia) HTN (hypertension) Kidney stones Surgical History Hx of tonsillectomy Social History Smoking Status: Former smoker Second Hand Exposure: No; Do You Dip or Chew Tobacco: No; Tobacco Cessation Education Requested by Patient: No Hx Alcohol Use: No Hx Substance Use: Yes Non-Prescribed Medications: Marijuana Last Used Substance Other:: occasionally Preferred Language: Amharic Communication Ability: Effective Office Support Specialist Required: No Beliefs That Will Affect Care: None marital status: Current Living Situation: Alone Current Living Situation Comment: byself and with his mother at [facility] taking care of her How many Children do You have: 2 Other Information That Helps Us Care for You: No Feels Safe at Home: Yes Safety Concerns: Feels Safe At This Time Assistive Devices: Cane Review of Systems Review of Systems: All systems reviewed & are unremarkable except as noted in HPI & below and Other ROS is positive for urinary burning, urgency, and hesitancy Physical Exam Constitutional: WD/WN, vitals as above Eyes: PERRL, conjunctivae normal, anicteric sclerae ENMT: external ear and nose normal, oropharynx normal Neck: trachea midline, no thyromegaly Respiratory: normal respiratory effort, lungs clear to auscultation Cardiovascular: RRR, no murmur, no edema Gastrointestinal (Abdomen): normal bowel sounds, soft, nontender, no hepatosplenomegaly Obese Musculoskeletal: Swelling of left ankle and foot with dactylitis of left 1-5 toes, Dactylitis of right 1st toe with tenderness of these sites Skin: Mild discoloration/hyperpigmentation of his left ankle/2nd and 3rd toes on the left and right 1s toe; erythematous patch on right knee (area where he fell); onycholysis of finger nails with some lifting off; no pitting Neurologic: PERRL, EOMI, accommodation nl, no face palsy, no dysarthria Results [facility] Vital Signs (Past 12 Hours) Vital Signs Temp Pulse Pulse Resp BP Pulse Ox 07/06/21 12:27 36.9 C 97 H 20 166/68 H 96 07/06/21 08:00 77 07/06/21 07:32 36.7 C 78 18 168/77 H 97 Laboratory Results RF negative at last admission Normal Uric acid Elevated sed rate and CRP Leukocytosis Diagnostic Findings Imaging reviewed
[2021-07-06] MEDS ORDERED: POTASSIUM CHLORIDE CRTAB 20 MEQ TABCR PO STA (18:00)
--- NOTE | 2021-07-06 18:00 | Hospitalist Progress Note ---
Date of Service July 06, 2021 Assessment & Plan (1) Diarrhea: Plan: 1) Watery Diarrhea -suspected C. diff, improving, Cont. p.o. vancomycin (day 6) 2) Acute Hypokalemia -Potassium at 3.1 --> 3.5 --> 3.3, replenished -Trend BMP in the morning 3) Polyarthritis -Left foot (see previous admission documentation for additional details) -Despite patient potentially having acute infection, will continue prednisone at present to control polyarthritis pain and inflammation, cont. prednisone PO 40mg -MRI left ankle --> mild marrow edema present involving medial malleolus of the tibia, again suspicious for mild osteomyelitis. However, no cortical destruction is identified. Interval improvement of previously identified cellulitis; prior left ankle MRI done on 06/24 -Potential gout flare in right big toe -consult ortho for potential arthrocentesis of both left ankle and right big toe --> ortho did not perform arthrocentesis due to insufficient fluid in joints --> will try to manage potential gout with colchicine as this seems more likely than osteomyelitis based on the presentation --> colchicine did not seem to help symptoms at all -Consulted rheumatology: appears to be psoriatic arthritis; 40mg medrol IV today, followed by 32mg medrol PO daily x1week, followed by 16mg medrol PO daily until his appointment scheduled for 07/20/[address] Farris in [place] 4) Dysuria, improving -UA shows trace leukocytes, possible infection, however, not likely. Refraining from beginning abx with ongoing C. Diff. 5) Thrombocytosis -Platelets at 670k --> 465K --> 465k --> 432k --> 406k -Trend CBC in the morning 6) BPH -continue home terazosin 7) HTN -cont. lisinopril and amlodipine, monitor BP Diet: Regular (2) Acute hypokalemia: (3) Polyarthritis: (4) Thrombocytosis: (5) BPH (benign prostatic hyperplasia): (6) HTN (hypertension): Admission and Anticipated Discharge Date Admission Date: July 04, 2021 Supervising Physician Co-Signing Physician Notes I personally examined the patient and verified all bowen points of history and exam, discussed case, and agree with decision making with Dr Andrews Diarrhea improved. Rheumatology input greatly appreciated. vitals noted nad heent nc at mmm breathing unlabored no accessory muscles good effort. presumed Cdiff diarrhea/colitis -tests as carrier, but clinical scenario fits with active infection - improving on PO vanco -continue this for probably about 10 days. ankle/toe pain/swelling - rheum input greatly appreciated. steroids. Dysuriafollow for now, urinalysis nonspecific, does have prostate issues that may be causing him trouble, much as above with the ankle and toe pain/swellingwould hesitate to put him on empiric antibiotics given that it would likely worsen the C. difficile situation otherwise as above, hopefully home tomorrow Subjective Stools improving, more firm and less frequent. Dysuria improved. No change in left ankle and right big toe pain/swelling. Review of Systems Review of Systems: All systems reviewed & are unremarkable except as noted in HPI & below Constitutional: no fever and no chills Respiratory: no cough and no dyspnea Cardiovascular: no chest pain Gastrointestinal: no abdominal pain Physical Exam Constitutional: WD/WN, vitals as above Eyes: PERRL, conjunctivae normal, anicteric sclerae ENMT: external ear and nose normal, oropharynx normal Respiratory: normal respiratory effort, lungs clear to auscultation Cardiovascular: RRR, no murmur, no edema Gastrointestinal (Abdomen): normal bowel sounds, soft, nontender, no hepatosplenomegaly Musculoskeletal: Left ankle: TTP lateral and medial malleolus, no skin changes without erythema, minimal edema. Right big toe: edematous without erythema, TTP over MCP and PIP. Results & Data Results & Data ([facility]) Vital Signs (Past 12 Hours) Vital Signs Temp Pulse Pulse Resp BP Pulse Ox 07/06/21 16:00 95 H 07/06/21 12:27 36.9 C 97 H 20 166/68 H 96 07/06/21 08:00 77 07/06/21 07:32 36.7 C 78 18 168/77 H 97 Resident Activity Tracking Resident Involvement: Resident Care Provided Care Provided: Adult Hospital Medicine
[2021-07-06] MEDS ORDERED: methylPREDNISolone 40 MG in SYRINGE 0 ML IV ONE (18:30)
--- NOTE | 2021-07-06 18:42 | Billing Data ---
Date of Service July 06, 2021 Coding Level of Care Code 50569 Subseq Hosp Care Lvl 2
--- NOTE | 2021-07-06 18:42 | Billing Data ---
Date of Service July 05, 2021 Coding Level of Care Code 16706 Subseq Hosp Care Lvl 3
[2021-07-06] MEDS: lisinopril 40 MG TAB PO SCH (19:49)
[2021-07-06] MEDS: TERAZOSIN HCL 1 MG CAP PO SCH (19:49)
[2021-07-07] MEDS ORDERED: VANCOMYCIN HCL 125 MG/2.5ML SOLN PO SCH
[2021-07-07] MEDS ORDERED: RASPBERRY SYRUP 5 ML UDP PO SCH
[2021-07-07] MEDS: VANCOMYCIN HCL 125 MG/2.5ML SOLN PO SCH ×3 (06:02→17:52)
[2021-07-07] MEDS: RASPBERRY SYRUP 5 ML UDP PO SCH ×3 (06:02→17:52)
[2021-07-07] MEDS: ASPIRIN 81 MG ECTAB PO SCH (09:08)
[2021-07-07] MEDS: amLODIPine BESYLATE 5 MG TAB PO SCH (09:08)
[2021-07-07 09:09] LABS: Basophils # (auto) 0.01 K/uL (0-0.2); Basophils % (auto) 0.1 %; Hematocrit (blood only) 34.7 % (42-52); Hemoglobin 11.2 g/dL (14.0-18.0); Immature Granulocytes # (auto) 0.46 K/uL (0.00-0.02); Immature Granulocytes % (auto) 2.7 %; Lymphocytes # (auto) 2.26 K/uL (1.2-3.4); Lymphocytes % (auto) 13.5 %; Mean Corpuscular Hemoglobin 27.8 pg (25-34); Mean Corpuscular Hgb Conc 32.3 g/dL (32-36); Mean Corpuscular Volume 86.1 fL (80-100); Mean Platelet Volume 8.9 fL (7.4-10.4); Monocytes # (auto) 0.33 K/uL (0.11-0.59); Neutrophils # (auto) 13.67 K/uL (1.4-6.5); Neutrophils % (auto) 81.7 %; Platelet Count 403 K/uL (130-400); RDW Coefficient of Variation 14.7 % (11.5-14.5); RDW Standard Deviation 45.9 fL (36.4-46.3); Red Blood Count 4.03 M/uL (4.7-6.1); White Blood Count 16.73 K/uL (4.8-10.8)
[2021-07-07] MEDS: FAMOTIDINE 20 MG TAB PO SCH (09:09)
[2021-07-07] MEDS: ENOXAPARIN INJ 40 MG/0.4 ML SYR SQ SCH (09:12)
[2021-07-07 10:02] LABS: BUN Creatinine Ratio 17.3 (10-20); Calcium 9.2 mg/dl (8.5-10.1); Creatinine Clr Calc Pharmacy 76.9 ml/min; Est GFR (African American) 86.8 ml/min; Est GFR (Non-African American) 74.9 ml/min; Potassium 3.8 mmol/L (3.5-5.1)
--- NOTE | 2021-07-07 13:11 | Hospitalist Progress Note ---
Date of Service July 07, 2021 Assessment & Plan (1) Diarrhea: Plan: 1) Watery Diarrhea -suspected C. diff, improving -Cont. PO vancomycin 3 more days (125mg QID) 2) Polyarthritis -Left foot (see previous admission documentation for additional details) -Despite patient potentially having acute infection, will continue prednisone at present to control polyarthritis pain and inflammation, cont. prednisone PO 40mg -MRI left ankle --> mild marrow edema present involving medial malleolus of the tibia, again suspicious for mild osteomyelitis. However, no cortical destruction is identified. Interval improvement of previously identified cellulitis; prior left ankle MRI done on 06/24 -Potential gout flare in right big toe -consult ortho for potential arthrocentesis of both left ankle and right big toe --> ortho did not perform arthrocentesis due to insufficient fluid in joints --> will try to manage potential gout with colchicine as this seems more likely than osteomyelitis based on the presentation --> colchicine did not seem to help symptoms at all -Consulted rheumatology: appears to be psoriatic arthritis; given 40mg medrol IV, followed by 32mg medrol PO daily x1week, followed by 24mg medrol PO daily un til his appointment scheduled for 07/20/[address] Farris in [place] 3) Acute Hypokalemia , resolved -Potassium at 3.8 4) Dysuria, resolved -UA showed trace leukocytes, possible infection, however, not likely. Refraining from beginning abx with ongoing C. Diff. 5) Thrombocytosis -Platelets at 670k --> 465K --> 465k --> 432k --> 406k --> 403k -likely secondary to infection, improving 6) BPH -continue home terazosin 7) HTN -cont. home lisinopril and amlodipine (2) Acute hypokalemia: (3) Polyarthritis: (4) Thrombocytosis: (5) BPH (benign prostatic hyperplasia): (6) HTN (hypertension): Admission and Anticipated Discharge Date Admission Date: July 04, 2021 Subjective Stools continue to improve, more firm. Left ankle and right big toe improving, less pain than yesterday. [place] a difference immediately IV steroids yesterday. Review of Systems Constitutional: no fever and no chills Respiratory: no cough and no dyspnea Cardiovascular: no chest pain Gastrointestinal: no abdominal pain Physical Exam Constitutional: WD/WN, vitals as above Eyes: PERRL, conjunctivae normal, anicteric sclerae ENMT: external ear and nose normal, oropharynx normal Respiratory: normal respiratory effort, lungs clear to auscultation Cardiovascular: RRR, no murmur, no edema Gastrointestinal (Abdomen): normal bowel sounds, soft, nontender, no hepatosplenomegaly Musculoskeletal: Left ankle: TTP lateral and medial malleolus, no skin changes without erythema, minimal edema. Right big toe: edematous without erythema, TTP over MCP and PIP. Exam improved from yesterday with less guarding on palpation. Results & Data Results & Data ([facility]) Vital Signs (Past 12 Hours) Vital Signs Temp Pulse Pulse Resp BP Pulse Ox 07/07/21 08:00 53 L 07/07/21 07:03 36.7 C 68 20 159/73 H 96 07/07/21 04:40 36.4 C L 58 L 20 166/80 H 98 Resident Activity Tracking Resident Involvement: Resident Care Provided Care Provided: Adult Hospital Medicine
[2021-07-07] MEDS ORDERED: PHARMACIST DISCHARGE MED REC CONSULT STA (17:07)
--- NOTE | 2021-07-07 18:40 | Discharge Summary ---
Date of Service July 07, 2021 Admission HPI Per Admitting Provider Mr. Candelaria is a 70 yo gentleman who came to the ED for evaluation of watery diarrhea of two days duration. Of note, the majority of his medical care takes place at the [facility]. However, he was recently admitted to [facility] on 06/21/21 to 06/26/21 for evaluation of left foot pain. Initially, he was thought to have gout, however his uric acid levels were low-normal. He was empirically started on Iv vancomycin and zosyn due to concerns for possible cellulitis, as an ankle MRI showed evidence of soft tissue edema. Antibiotics were later stopped. Orthopedics was consulted, who found no tapable fluid collection. His case was apparently discussed with rheumatology, who felt as though he was likely suffering from a polyarticular arthritis. He was sent out on a oral prednisone taper. He says the left foot has felt better since starting the steroid. He thought he had an appointment with Rheumatology at the [facility] on 06/28/21, however this was a misunderstanding. He is now scheduled to see them on 10/10/21. A rheumatoid factor was drawn during previous hospital stay - however it has subsequently resulted negative. He reports many episodes of watery diarrhea that began 1 day ago. No blood in the diarrhea. He did have nausea and dry heaves, although did not bring anything up. He reports shaking chills, although he never took his temperature. He denies any previous infections of cdiff. In the ED, he was afebrile with normal HR and BP. Breathing well on room air. His WBC was elevated to 15 with neutrophil predom. His Hgb was 12.4, up from 9.2 during last admission. Platelets elevated to 679 K/UL. His Na was 134, K low at 2.9. Normal kidney and liver function. Trop undetectable. UA not concerning for infection. Cdiff gene +, toxin unable to be determined. Covid 19 neg. Stool culture pending. EKG showing NSR, RBBB (old). XR of chest and abdomen appeared WNL, official read pending. Cat scan of abdomen and pelvis showing mild circumferential wall thickening of distal transverse and descending colon and cecum, possibly due to colitis. He was given a dose of oral vancomycin, zofran and IVF with KCl. Principal Diagnosis Cdiff colitis, probable psoriatic arthritis Discharge Exam gen aaox3 pleasant nad heent nc at mmm breathing unlabored no accessory muscles good effort skin no rashes no pallor or icterus neuro no focal deficits Discharge Data Allergies Allergy/AdvReac Type Severity Reaction Status Date / Time Penicillins AdvReac Severe pain Verified 06/30/21 22:06 Consultations 07/01/21 00:35 ED Decision to Admit Stat 07/04/21 18:30 Consult Orthopedic Surgery Routine 07/06/21 11:07 Consult Rheumatology Routine Ordered Studies 06/30/21 21:57 CT abd pelvis wo con Urgent 07/03/21 16:31 MR ankle LT wo con Routine Hospital Course (1) Diarrhea: 1) Watery Diarrhea -suspected C. diff, improving, Cont. p.o. vancomycin for approx 10 days, discussed risk of relapse/recurrence 2) Acute Hypokalemia -outpt f/u 3) Polyarthritis -suspicious to be psoriatic arthritis, steroids, for now, outpt rheumatology f/u 4) Dysuria, improving -doubt infection 5) Thrombocytosis -likely phase reactant - outpt f/u 6) BPH -continue home terazosin 7) HTN -home on home meds Diet: Regular Total Time Total Time Spent Total Time Spent (In Minutes): <30 Discharge Plan Discharge Items Patient Disposition: Home - Self-Care Reason For Visit: DIARRHEA Discharge Diagnosis: C. Diff, Psoriatic arthritis Activity: Per Instructions section Non-emergency contact: Primary Care Provider Call non-emergency contact if: you have any medication questions, your symptoms worsen and your pain is not controlled Follow-up/Referrals: PCP,NO [Physician] - Diet: Regular Addtl Attending Provider Instructions: After discharge you will be treated for the following conditions as stated: C. Diff -Continue antibiotic Vancomycin 125mg every 6 hours (4x/day) for the next 3 days after today. You will need to fish bait picker your prescription after discharge and take one dose tonight as well. Complete the antibiotic to completion. -You should continue to feel better. If symptoms worsen after stopping abx, please contact your PCP for further evaluation and treatment. Psoriatic Arthritis - The field sales specialist you met in the hospital thinks your condition involving your left ankle and right big toe may be psoriatic arthritis. - Beginning tomorrow, you should take 32mg (two 16mg tabs) of medrol each morning for the next 7 days. Then after, take 24mg (one and a half 16mg tabs) each morning until your appointment with the field sales specialist (Dr. Farris) on 07/20/2021 in [place]. - Discontinue home prednisone 10mg. Pending Studies at Discharge: No Stand-Alone Forms: My [facility] Medications and DC Order Prescriptions: New vancomycin 125 mg capsule 125 mg PO Q6H Qty: 11 RF: 0 methylprednisolone [Medrol] 16 mg tablet 16 mg PO QAM Qty: 23 RF: 0 Continued multivitamin Tablet 1 tab PO WK RF: 0 cyanocobalamin (vitamin B-12) [Vitamin B-12] 1,000 mcg Tablet 1,000 mcg PO WK RF: 0 aspirin [Aspirin Low Dose] 81 mg Tablet,Delayed Release (Dr/Ec) 81 mg PO DAILY RF: 0 ascorbic acid (vitamin C) [Vitamin C] 500 mg Tablet 500 mg PO DAILY RF: 0 lisinopril 10 mg Tablet 15 mg PO HS RF: 0 cholecalciferol (vitamin D3) [Vitamin D3] 25 mcg (1,000 unit) Tablet 25 mcg PO DAILY RF: 0 PreserVision AREDS 14,320-226-200 [id number] Capsule 1 cap PO DAILY RF: 0 [id number]-ast [krill oil] 1,481-160-30-80 mg Capsule 2 cap PO DAILY PRN (Reason: eats no fish that day) RF: 0 terazosin 2 cap PO HS RF: 0 ibuprofen 200 mg Tablet 400 mg PO TID PRN (Reason: Pain) Qty: 0 RF: 0 famotidine 20 mg Tablet 20 mg PO QAM Qty: 30 RF: 0 Discontinued prednisone 10 mg tablet 40 mg PO DAILY Qty: 30 RF: 0 Discharge Orders: Discharge Order (Routine); Ordered 07/07/21 Ordered By: Magdaleno Andrews Admission Data Admit Date/Time: 07/04/21 10:21 Attending Provider: Vitor Pickett Admit Provider: Briana Kirkland Primary Care Provider: Krunal Quiles Other Providers: Ivone Carpenter ; [facility] ; Supa Nix ; Latha Farris I. Other Interventions: Discharge Summary Assessment (RN) Last Done: 07/07/21 15:21 Coding Level of Care Code D/C DAY MANAGEMENT <30 MINS Diagnoses Diarrhea R19.7
[2021-07-09 18:55] LABS: Cyclic Citrullinated Pep IgG <16 UNITS; HLA B27 POSITIVE (NEGATIVE)
== END 2021-07-07 18:24 | disposition home or self-care (01) | DRG 546 ==
LOC: ED 18:06 → EDINP 18:06 → SUATTDRO 07-01 01:39 → 2W 07-01 05:30